=== PATIENT | female | born 1955 | race Caucasian/White ===

== ENCOUNTER 2018-07-08 11:16 | Emergency (ER) | payer BC ==
--- OUTSIDE RECORDS SUMMARY | 2018-07-08 12:28 | XMS REPORT | Continuity of Care Document ---
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 Payers Date Identification Numbers Payment Provider Subscriber Effective: 2011 Policy Number: [id number] [facility] [place] PayID: [id number] [address] [address] [place] [address] Advance Directives Description No Information Available Problems Date Description Provider Status Onset: 07/21/2011 Mixed hyperlipidemia Dariana Guzman PA Active Onset: 06/27/2016 Gastroesophageal reflux disease Digiovanna, Leonela, [employer] Active Onset: 06/27/2016 Mild intermittent asthma DigiovannaEriLeonela, [employer] Active Onset: 06/27/2016 Allergic rhinitis Digiovanna Leonela, [employer] Active Onset: 06/27/2016 Benign neoplasm of pituitary Digiovanna, Leonela, [employer]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 Onset: 12/29/2017 Vitamin D deficiency Digiovanna, Leonela, [employer] Active Onset: 07/21/2011 Alopecia Dariana Guzman PA Resolved Resolved: 12/29/2017 Family History Date Family Member(s) Observation Comments Father Heart Disease Father Hypertension Father Arthritis Father Dementia Mother Cancer, Ovarian Mother Hypercholesterolemia Mother Hypertension Mother Heart Disease Children 2 Social History Type Date Description Comments Sex Unknown Marital Status Lives With Spouse 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 Tobacco Use Start: Unknown Never Smoked Cigarettes Tobacco Use Start: Unknown Patient has never smoked Smoking Status Reviewed: 09/20/16 Patient has never smoked Allergies, Adverse Reactions, Alerts Date Description Reaction Status Severity Comments 04/01/2005 Meclizine Active 02/17/2005 Erythromycin Active 07/02/2018 Flaxseed Extract Active Facial swelling Medications Medication Date Status Form Strength Qnty SIG Indications Ordering Provider Rosuvastatin 07/02/ Active Tablets 10mg 30tabs take 1 E78.2 Digiovann Calcium 2018 tablet a, 2x/week Leonela, after [employer] main meal Vitamin D 06/30/ Active Tablets 2000Unit OTC 1 by E55.9 Digiovann 2017 mouth a, every day Leonela, [employer] Prevacid 12/13/ Active Capsules 15mg 90caps Take 1 K21.9 Digiovann 2016 Capsule a, Daily Leonela, [employer] Clarinex 08/28/ Active Tablets 5mg 90tabs take 1 J30.9 Digiovann 2014 tablet a, daily Leonela, [employer] Ventolin HFA 03/19/ Active Aerosol 108mcg/Act 1units 2 puffs J45.20 Hussein, 2012 q4 hours tez Aguilar DO Ascorbic Acid 00/ Active Tablets 250mg 100tab 1 po qd Z00.00 Unknown 0000 s Dymista 00/ Active Suspension 137-50mcg/ 1units 1 spray J30.9 Unknown 0000 Act each nostril twice a day as needed J45.20 [place] Active Aerosol 80mcg/Act 1 puff J45.20 Unknown inhaled twice daily DR Wesley Rosuvastatin 07/04/2017 - Hx Tablets 5mg 14t take 1 E78.2 Digiovanna Calcium 07/02/2018 abs tablet by , mouth once Leonela, weekly [employer] Amoxicillin/Cla 05/31/2017 - Hx Tablets 875-125mg 20t 1 by mouth J01.00 galilea Savageanate 06/10/2017 abs twice a Lien Aguilar day x 10 DO days Duexis 09/16/2016 - Hx Tablets 800-26.6mg take one M25.511 Nneka Disla 01/13/2017 tab by adley S mouth three times a day as needed pain K21.9 Prednisone 04/01/2016 - Hx Tablets 10mg 42tabs 6 pills M54.31 Savage, 04/11/2016 pox 2days, Jeff, ruth 5 DO pills po x 2days, 4 pox 2 day, 3 po x 2days, 2 po daily x2, 1 po daily x 2 days Prevacid 12/29/2014 - Hx Capsules DR 15mg 90caps take 1 K21.9 Digiovanna 09/16/2016 capsule , daily Leonela, [employer] Crestor 09/16/2014 - Hx Tablets 5mg 30tabs 1 by mouth E78.2 Digiovanna 07/04/2017 weekly , FRANNY Gipson Ondansetron HCL 06/12/2014 - Hx Tablets 4mg 20tabs 1 po tid 787.02 Savage, 06/17/2014 Jeff, DO Azithromycin 06/12/2014 - Hx Tablets 250mg 6tabs 2 by mouth 465.9 Savage , 06/17/2014 day 1, 1 Jeff, by mouth DO day 2-5 Simvastatin 03/27/2014 - Hx Tablets 5mg 15tabs 1 by mouth 272.2 Savage, 09/16/2014 every Jeff, other day DO Lansoprazole 09/17/2013 - Hx Capsules DR 15mg 90caps 1 po qd Savage, 12/29/2014 Jeff, DO Cyclobenzaprine 03/19/2013 - Hx Tablets 5mg 30tabs 1-2 po qhs Savage, HCL 03/10/2016 prn pain Jeff, caution: DO sedation Triamcinolone 03/19/2013 - Hx Aerosol 55mcg/ 1units 1 spray J30.9 Hussein , Acetonide 06/30/2017 Act each Jeff nostril DO bid Ibuprofen 03/05/2013 - Hx Tablets 800mg 90tabs 1 po tid Hussein, 09/13/2016 with food Jeff, DO Clobetasol 05/29/2012 - Hx Foam 0.05% 50gm apply to Hussein, Propionate 01/13/2017 effected Jeff Emulsion area prn DO Desloratadine 05/10/2011 - Hx Tablets 5mg 90tabs 1 tab by Hussein, 08/28/2014 mouth Jeff, daily DO Tobradex - Hx Suspension 0.3-0. 1Bottle 2 drops Unknown 12/10/2014 1% RIGHT eye three times a day for [address] Boss Immunizations CPT Code Status Date Vaccine Lot # [id number] Given 01/01/2015 Tdap (Adacel) Ages 7 And Above Only [id number] Given 01/26/2012 Afluria Or Fluvirin Flu Vac Intramuscular [id number] Given 03/11/2010 Afluria Or Fluvirin Flu Vac Intramuscular [id number] Given 04/21/2009 Afluria Or Fluvirin Flu Vac Intramuscular Vital Signs Date Vital Result Comment 07/02/2018 4:06pm Weight 201.44 lb Heart Rate 76 /min BP Systolic 130 mmHg BP Diastolic 80 mmHg Respiratory Rate 16 /min Height 63.5 inches 5'3.50" 06/30/17 BMI (Body Mass Index) 35.1 kg/m2 01/10/2018 2:48pm Body Temperature 98.7 F tympanic Weight 198.25 lb Heart Rate 78 /min BP Systolic 136 mmHg BP Diastolic 70 mmHg Respiratory Rate 16 /min Height 63.5 inches 5'3.50" 06/30/17 BMI (Body Mass Index) 34.6 kg/m2 12/29/2017 3:53pm Weight 196.00 lb Heart Rate 78 /min BP Systolic 130 mmHg BP Diastolic 76 mmHg Respiratory Rate 18 /min Height 63.5 inches 5'3.50" 06/30/17 BMI (Body Mass Index) 34.2 kg/m2 06/30/2017 3:28pm Weight 193.00 lb Heart Rate 70 /min BP Systolic 142 mmHg BP Diastolic 78 mmHg Respiratory Rate 16 /min Height 63.5 inches 5'3.50" 06/30/17 BMI (Body Mass Index) 33.6 kg/m2 05/31/2017 11:41am Body Temperature 98.6 F Weight 194.00 lb Heart Rate 80 /min BP Systolic 138 mmHg BP Diastolic 78 mmHg Respiratory Rate 18 /min Height 63.75 inches 5'3.75" O2 % BldC Oximetry 98 % BMI (Body Mass Index) 33.6 kg/m2 01/13/2017 8:56am Weight 189.00 lb Heart Rate 76 /min BP Systolic 122 mmHg BP Diastolic 82 mmHg Respiratory Rate 18 /min Height 63.75 inches 5'3.75" BMI (Body Mass Index) 32.7 kg/m2 09/20/2016 3:36pm Weight 184.00 lb Heart Rate 78 /min BP Systolic 132 mmHg BP Diastolic 74 mmHg Respiratory Rate 18 /min Height 63.75 inches 5'3.75" BMI (Body Mass Index) 31.8 kg/m2 08/31/2016 3:03pm Weight 184.00 lb Heart Rate 74 /min BP Systolic 138 mmHg BP Diastolic 80 mmHg Respiratory Rate 18 /min Height 63.75 inches 5'3.75" BMI (Body Mass Index) 31.8 kg/m2 06/27/2016 8:35am Body Temperature 98.0 F Weight 180.00 lb Heart Rate 74 /min BP Systolic 130 mmHg BP Diastolic 80 mmHg Respiratory Rate 18 /min Height 63.75 inches 5'3.75" BMI (Body Mass Index) 31.1 kg/m2 04/01/2016 9:02am Weight 195.00 lb Heart Rate 68 /min BP Systolic 120 mmHg BP Diastolic 78 mmHg Respiratory Rate 18 /min Height 63.75 inches 5'3.75"02/27 BMI (Body Mass Index) 33.7 kg/m2 03/10/2016 8:38am Weight 196.00 lb Heart Rate 70 /min BP Systolic 140 mmHg BP Diastolic 80 mmHg BP Systolic Recheck 144 mmHg BP Diastolic Recheck 80 mmHg Respiratory Rate 18 /min Height 63.75 inches 5'3.75"02/27 BMI (Body Mass Index) 33.9 kg/m2 11/10/2015 10:13am Weight 191.00 lb Heart Rate 68 /min BP Systolic 130 mmHg BP Diastolic 80 mmHg Respiratory Rate 18 /min Height 63.5 inches 5'3.50" BMI (Body Mass Index) 33.3 kg/m2 04/02/2015 8:31am Weight 197.00 lb Heart Rate 72 /min BP Systolic 130 mmHg BP Diastolic 80 mmHg Respiratory Rate 18 /min Height 63.5 inches 5'3.50" BMI (Body Mass Index) 34.3 kg/m2 01/01/2015 10:15am Weight 194.00 lb BP Systolic 130 mmHg BP Diastolic 72 mmHg Respiratory Rate 18 /min Height 63.5 inches 5'3.50" BMI (Body Mass Index) 33.8 kg/m2 12/10/2014 9:20am Body Temperature 98.8 F Weight 196.00 lb Heart Rate 70 /min BP Systolic 148 mmHg BP Diastolic 88 mmHg Respiratory Rate 18 /min Height 63.5 inches 5'3.50" BMI (Body Mass Index) 34.2 kg/m2 09/16/2014 8:32am Weight 197.00 lb Heart Rate 68 /min BP Systolic 126 mmHg BP Diastolic 70 mmHg Respiratory Rate 18 /min Height 63.5 inches 5'3.50" BMI (Body Mass Index) 34.3 kg/m2 08/26/2014 1:59pm Weight 201.00 lb Heart Rate 66 /min BP Systolic 124 mmHg BP Diastolic 84 mmHg Respiratory Rate 18 /min Height 63.5 inches 5'3.50" BMI (Body Mass Index) 35.0 kg/m2 06/19/2014 9:59am Body Temperature 98.5 F Weight 196.00 lb Heart Rate 72 /min BP Systolic 112 mmHg BP Diastolic 70 mmHg Respiratory Rate 18 /min Height 63.5 inches 5'3.50" BMI (Body Mass Index) 34.2 kg/m2 06/12/2014 8:30am Body Temperature 99.1 F Weight 195.00 lb Heart Rate 84 /min BP Systolic Recheck 120 mmHg BP Diastolic Recheck 68 mmHg Respiratory Rate 18 /min Height 63.5 inches 5'3.50" O2 % BldC Oximetry 98 % BMI (Body Mass Index) 34.0 kg/m2 03/27/2014 10:43am Weight 196.00 lb Heart Rate 72 /min BP Systolic 130 mmHg BP Diastolic 80 mmHg Respiratory Rate 18 /min Height 63.5 inches 5'3.50" 11/23/2013 10:01am Body Temperature 99.1 F Weight 199.00 lb Heart Rate 74 /min BP Systolic 140 mmHg BP Diastolic 90 mmHg Respiratory Rate 18 /min Height 63.5 inches 5'3.50" 09/17/2013 1:10pm BP Systolic 134 mmHg BP Diastolic 74 mmHg 09/17/2013 1:10pm Weight 193.00 lb Heart Rate 70 /min BP Systolic 140 mmHg BP Diastolic 70 mmHg Respiratory Rate 18 /min Height 63.5 inches 5'3.50" 05/28/2013 11:43am BP Systolic 152 mmHg BP Diastolic 80 mmHg 05/28/2013 11:43am Weight 199.00 lb Heart Rate 72 /min BP Systolic 138 mmHg BP Diastolic 80 mmHg Respiratory Rate 18 /min 03/19/2013 9:55am Body Temperature 99.7 F Weight 198.00 lb Heart Rate 74 /min BP Systolic 150 mmHg BP Diastolic 84 mmHg Respiratory Rate 18 /min O2 % BldC Oximetry 98 % 03/05/2013 1:47pm Heart Rate 72 /min BP Systolic 150 mmHg BP Diastolic 80 mmHg Respiratory Rate 18 /min 01/22/2013 10:35am Weight 198.00 lb Heart Rate 76 /min BP Systolic 142 mmHg BP Diastolic 80 mmHg Respiratory Rate 18 /min 08/28/2012 11:16am Weight 197.00 lb Up 18# Heart Rate 68 /min BP Systolic 140 mmHg BP Diastolic 84 mmHg Respiratory Rate 18 /min 07/21/2011 9:59am Weight 179.00 lb Heart Rate 68 /min BP Systolic 140 mmHg BP Diastolic 70 mmHg Respiratory Rate 18 /min Height 64 inches 5'4" 04/08/2011 11:04am Weight 180.00 lb Heart Rate 74 /min BP Systolic 146 mmHg BP Diastolic 78 mmHg Respiratory Rate 20 /min Height 64 inches 5'4" 03/17/2011 9:37am Weight 180.00 lb Heart Rate 89 /min BP Systolic 158 mmHg BP Diastolic 80 mmHg Respiratory Rate 17 /min Height 64 inches 5'4" 03/11/2011 1:50pm Body Temperature 98.7 F Weight 184.06 lb Heart Rate 68 /min BP Systolic 130 mmHg BP Diastolic 88 mmHg Respiratory Rate 18 /min Height 64 inches 5'4" O2 % BldC Oximetry 98 % 11/30/2010 8:40am BP Systolic 144 mmHg BP Diastolic 78 mmHg 11/30/2010 8:40am Weight 177.00 lb Heart Rate 64 /min BP Systolic 150 mmHg BP Diastolic 90 mmHg Respiratory Rate 16 /min Height 64 inches 5'4" 10/18/2010 9:46am Weight 182.00 lb Heart Rate 85 /min BP Systolic 134 mmHg BP Diastolic 80 mmHg Respiratory Rate 18 /min 08/20/2010 11:46am Weight 187.00 lb Heart Rate 64 /min BP Systolic 170 mmHg BP Diastolic 100 mmHg 07/22/2010 8:34am Weight 190.00 lb down 14 lbs Heart Rate 80 /min BP Systolic 120 mmHg BP Diastolic 80 mmHg Height 64 inches 5'4" 05/14/2010 10:24am Body Temperature 100.0 F Weight 204.00 lb Heart Rate 90 /min BP Systolic 124 mmHg l arm BP Diastolic 88 mmHg l arm Respiratory Rate 18 /min O2 % BldC Oximetry 99 % Ra 03/11/2010 8:22am Weight 204.00 lb Heart Rate 66 /min BP Systolic 142 mmHg BP Diastolic 76 mmHg Respiratory Rate 16 /min 12/09/2009 3:18pm Weight 203.00 lb Heart Rate 80 /min BP Systolic 114 mmHg l arm BP Diastolic 72 mmHg l arm Respiratory Rate 16 /min 11/19/2009 9:47am Weight 203.00 lb Heart Rate 66 /min BP Systolic 120 mmHg BP Diastolic 74 mmHg Respiratory Rate 15 /min 10/29/2009 10:02am BP Systolic 136 mmHg BP Diastolic 90 mmHg 10/29/2009 10:02am Weight 200.00 lb Heart Rate 60 /min BP Systolic 144 mmHg l arm BP Diastolic 100 mmHg l arm Respiratory Rate 18 /min 08/25/2009 9:37am Body Temperature 100.5 F Weight 204.00 lb Heart Rate 75 /min BP Systolic 108 mmHg BP Diastolic 80 mmHg O2 % BldC Oximetry 98 % Ra 06/04/2009 8:30am Weight 210.00 lb BP Systolic 140 mmHg BP Diastolic 80 mmHg 01/01/2009 3:07pm Weight 207.00 lb Heart Rate 72 /min BP Systolic 124 mmHg RIGHT BP Diastolic 76 mmHg RIGHT Respiratory Rate 15 /min 06/30/2008 1:30pm BP Systolic 132 mmHg BP Diastolic 80 mmHg 06/30/2008 1:30pm Weight 203.00 lb Heart Rate 80 /min BP Systolic 148 mmHg BP Diastolic 80 mmHg Respiratory Rate 15 /min 05/27/2008 9:40am BP Systolic 148 mmHg BP Diastolic 88 mmHg 05/27/2008 9:40am Weight 204.00 lb Heart Rate 80 /min BP Systolic 140 mmHg BP Diastolic 80 mmHg Respiratory Rate 15 /min 01/24/2008 11:29am Body Temperature 99.7 F Weight 200.00 lb Heart Rate 84 /min BP Systolic 152 mmHg BP Diastolic 94 mmHg Respiratory Rate 20 /min 12/13/2007 10:01am Weight 202.00 lb Heart Rate 69 /min BP Systolic 106 mmHg BP Diastolic 74 mmHg Respiratory Rate 16 /min 08/21/2007 10:11am Heart Rate 68 /min BP Systolic 132 mmHg BP Diastolic 86 mmHg Respiratory Rate 18 /min 06/07/2007 9:35am Weight 209.00 lb Heart Rate 72 /min BP Systolic 122 mmHg BP Diastolic 80 mmHg Respiratory Rate 18 /min 01/23/2007 9:56am Weight 202.00 lb Heart Rate 69 /min BP Systolic 118 mmHg BP Diastolic 68 mmHg Respiratory Rate 18 /min 10/05/2006 8:31am Weight 209.00 lb Heart Rate 62 /min BP Systolic 120 mmHg BP Diastolic 80 mmHg Respiratory Rate 17 /min 08/22/2006 10:39am Body Temperature 98.8 F Weight 205.00 lb Heart Rate 75 /min BP Systolic 136 mmHg BP Diastolic 80 mmHg Respiratory Rate 17 /min O2 % BldC Oximetry 98 % 07/08/2006 11:01am Body Temperature 100.3 F Weight 208.00 lb Heart Rate 76 /min BP Systolic 130 mmHg BP Diastolic 70 mmHg Respiratory Rate 20 /min 06/30/2006 10:00am Body Temperature 98.8 F Weight 210.00 lb With Boots And Coat Heart Rate 74 /min BP Systolic 138 mmHg BP Diastolic 80 mmHg Respiratory Rate 17 /min 2006 8:44am Heart Rate 62 /min BP Systolic 120 mmHg BP Diastolic 60 mmHg Respiratory Rate 18 /min 10/17/2005 2:44pm Body Temperature 99.4 F Weight 207.00 lb Heart Rate 77 /min BP Systolic 150 mmHg BP Diastolic 100 mmHg Respiratory Rate 17 /min 04/01/2005 11:21am Body Temperature 98.2 F Weight 209.00 lb Heart Rate 89 /min BP Systolic 130 mmHg BP Diastolic 98 mmHg Respiratory Rate 17 /min 02/17/2005 2:06pm Weight 209.00 lb Heart Rate 68 /min BP Systolic 144 mmHg BP Diastolic 80 mmHg Respiratory Rate 16 /min Results Test Date Facility Test Result H/L Range Note Laboratory test 06/28/2018 [facility] Prolactin 9.6 ng/ mL 1, 2 finding (315)- - LDL Cholesterol 06/28/2018 [facility] Cholesterol 242 mg/ dL High <200 3 Profile (315)- - Triglycerides 126 mg/dL <150 4 HDL Cholesterol 57 mg/dL >40 5 LDL-Cholesterol 160 mg/dL < 100 6 BMP (Basic) 06/28/2018 [facility] Glucose 93 mg/dL N 74 -106 (315)- - BUN 16 mg/dL N 7-18 Creatinine 0.8 mg/dL N 0.6-1.3 Glom Filtration Rate, Estimate >60 mL/min >60 If >60 mL/min >60 7 BUN/Creat 20.0 ratio Sodium 141 mmol/L N 136-145 Potassium 4.0 mmol/L N 3.5-5.1 Chloride 106 mmol/L N 98-107 Carbon Dioxide 30 mmol/L N 21-32 Anion Gap 5 mEq/L Low 8-16 Calcium 8.6 mg/dL N 8.5-10.1 Liver Function 06/28/2018 [facility] Total Protein 7.3 g/ dL N 6.4-8.2 Tests (315)- - Albumin 3.6 g/dL N 3.4-5.0 Globulin 3.7 g/dL N 1.9-4.3 Alb/Glob 1.0 ratio Bilirubin,Total 0.5 mg/dL N 0.2-1.0 Bilirubin,Direct < 0.1 mg/dL N 0.0-0.2 Bilirubin,Indirect 0.4 mg/dL N 0.0-0.9 Sgot/Ast 8 U/L Low 15-37 8 SGPT/Alt 21 U/L N 12-78 Alkaline Phosphatase 52 U/L N 45-117 Laboratory test 06/28/2018 [facility] Vitamin 25.9 Low 30.0-100.0 9 finding (315)- - D,25-Hydroxy ng/mL LDL Cholesterol 04/11/2018 [facility] Cholesterol 268 High <200 10, Profile (315)- - mg/dL 11 Triglycerides 117 mg/dL <150 12 HDL Cholesterol 56 mg/dL >40 13 LDL-Cholesterol 189 mg/dL < 100 14 CBC With Auto 04/11/2018 [facility] White Blood 4.2 K/uL N 3.1-10.7 Diff (315)- - Count Red Blood Count 4.66 M/uL N 3.90-5.40 Hemoglobin 13.6 gm/dL N 11.6-15.8 Hematocrit 41.8 % N 36.0-46.1 Mean Cell Volume 89.7 fl N 80.9-99.0 Mean Corpuscular HGB 29.2 pg N 25.9-32.7 Mean Corpuscular HGB Conc 32.5 g/dL N 30.8-34.3 Platelet Count 190 K/uL N 155-360 Red Cell Distri Width SD 42.4 fl N 3-47 Red Cell Distri Width %CV 13.1 % N 11.7-14.4 Mean Platelet Volume 10.4 fL N 8.9-12.4 Neut% 66.1 % N 40.4-72.8 Lymph % 24.1 % N 20.0-42.0 [place] % 7.9 % N 4.3-13.2 Eo% 1.2 % N 0.0-6.6 Bas% 0.7 % N 0.0-1.1 Neut# 2.77 K/uL N 1.8-7.0 Lymph # 1.01 K/uL N 1.0-4.0 [place] # 0.33 K/uL N 0.3-0.9 Eos # 0.05 K/uL N 0.0-0.5 Baso # 0.03 K/uL N 0.0-0.1 Liver Function 04/11/2018 [facility] Total Protein 7.1 g/ dL N 6.4-8.2 Tests (315)- - Albumin 3.6 g/dL N 3.4-5.0 Globulin 3.5 g/dL N 1.9-4.3 Alb/Glob 1.0 ratio Bilirubin,Total 0.6 mg/dL N 0.2-1.0 Bilirubin,Direct 0.1 mg/dL N 0.0-0.2 Bilirubin,Indirect 0.5 mg/dL N 0.0-0.9 Sgot/Ast 12 U/L Low 15-37 15 SGPT/Alt 22 U/L N 12-78 Alkaline Phosphatase 51 U/L N 45-117 Laboratory test 12/27/2017 [facility] Vitamin 26.7 Low 30.0-100.0 16, 17 finding (315)- - D,25-Hydroxy ng/mL Comprehensive 12/27/2017 [facility] Glucose 95 mg/dL N 74-106 Metabolic-RL (315)- - BUN 14 mg/dL N 7-18 Creatinine 0.9 mg/dL N 0.6-1.3 Glom Filtration Rate, Estimate >60 mL/min >60 If >60 mL/min >60 18 BUN/Creat 15.5 ratio Sodium 142 mmol/L N 136-145 Potassium 4.0 mmol/L N 3.5-5.1 Chloride 106 mmol/L N 98-107 Carbon Dioxide 28 mmol/L N 21-32 Anion Gap 8 mEq/L N 8-16 Calcium 8.6 mg/dL N 8.5-10.1 Total Protein 7.4 g/dL N 6.4-8.2 Albumin 3.8 g/dL N 3.4-5.0 Globulin 3.6 g/dL N 1.9-4.3 Alb/Glob 1.1 ratio Bilirubin,Total 0.8 mg/dL N 0.2-1.0 Sgot/Ast 14 U/L Low 15-37 19 SGPT/Alt 22 U/L N 12-78 Alkaline Phosphatase 53 U/L N 45-117 Lipid 12/27/2017 [facility] Cholesterol 248 mg/dL High <200 20 (315)- - Triglycerides 134 mg/dL <150 21 HDL Cholesterol 55 mg/dL >40 22 LDL-Cholesterol 166 mg/dL < 100 23 LDL Cholesterol 06/26/2017 [facility] Cholesterol 243 mg/dL High <200 24, 25 Profile Lab Dept [phone] Triglycerides 127 mg/dL <150 26 HDL Cholesterol 56 mg/dL >40 27 LDL-Cholesterol 162 mg/dL < 100 28 Comprehensive Metabolic 06/26/2017 [facility] Glucose 94 mg/dL N 74-106 Panel Lab Dept [phone] BUN 20 mg/dL High 7-18 Creatinine 0.8 mg/dL N 0.6-1.3 Glom Filtration Rate, Estimate >60 mL/min >60 If >60 mL/min >60 29 BUN/Creat 25.0 ratio Sodium 143 mmol/L N 136-145 Potassium 4.1 mmol/L N 3.5-5.1 Chloride 108 mmol/L High 98-107 Carbon Dioxide 31 mmol/L N 21-32 Anion Gap 4 mEq/L Low 8-16 Calcium 8.9 mg/dL N 8.5-10.1 Total Protein 7.0 g/dL N 6.4-8.2 Albumin 3.5 g/dL N 3.4-5.0 Globulin 3.5 g/dL N 1.9-4.3 Alb/Glob 1.0 ratio Bilirubin,Total 0.4 mg/dL N 0.2-1.0 Sgot/Ast 12 U/L Low 15-37 30 SGPT/Alt 20 U/L N 12-78 Alkaline Phosphatase 56 U/L N 45-117 CBS W/Automated 06/26/2017 [facility] White Blood 6.1 K/uL N 3.1-10.7 Diff Lab Dept Count [phone] Red Blood Count 4.63 M/uL N 3.90-5.40 Hemoglobin 13.8 gm/dL N 11.6-15.8 Hematocrit 41.5 % N 36.0-46.1 Mean Cell Volume 89.6 fl N 80.9-99.0 Mean Corpuscular HGB 29.8 pg N 25.9-32.7 Mean Corpuscular HGB Conc 33.3 g/dL N 30.8-34.3 Platelet Count 186 K/uL N 155-360 Red Cell Distri Width SD 43.0 fl N 3-47 Red Cell Distri Width %CV 13.4 % N 11.7-14.4 Mean Platelet Volume 10.0 fL N 8.9-12.4 Neut% 71.1 % N 40.4-72.8 Lymph % 20.0 % N 20.0-42.0 [place] % 6.4 % N 4.3-13.2 Eo% 2.0 % N 0.0-6.6 Bas% 0.5 % N 0.0-1.1 Neut# 4.31 K/uL N 1.8-7.0 Lymph # 1.21 K/uL N 1.0-4.0 [place] # 0.39 K/uL N 0.3-0.9 Eos # 0.12 K/uL N 0.0-0.5 Baso # 0.03 K/uL N 0.0-0.1 Laboratory test 06/26/2017 [facility] Thyroid Stim 2.69 uIU/mL N 0.30-4.20 finding Lab Dept Hormone [phone] Prolactin 11.5 ng/mL 31 Vitamin D,25-Hydroxy 18.1 ng/mL Low 30.0-100.0 32 Laboratory test 03/24/2017 [facility] Hepatitis C 0.1 s/corat 0.0-0.9 33, 34 finding Lab Dept Antibody [phone] Laboratory test 11/04/2016 [facility] Occult NEGATIVE Negative 35, 36 finding (315)- - Blood,Stool Urinalysis With 11/04/2016 [facility] Urine Color YELLOW Yellow Microscopic (315)- - Urine Clarity CLEAR Clear Urine Glucose - Dipstick NEGATIVE mg/dL Negative Urine Bilirubin - Dipstick NEGATIVE Negative Urine Ketone NEGATIVE mg/dL Negative Urine Specific [place] 1.010 N 1.010-1.030 Urine Blood LARGE Abnormal Negative Urine PH 6.0 Low 6.5-7.5 Urine Protein - Dipstick NEGATIVE mg/dL Negative Urine Urobilinogen - Dipstick 0.2 E.U./dL N 0.2-1.0 Urine Nitrite - Dipstick NEGATIVE Negative Urine Leuk Esterase NEGATIVE Negative Urine RBC 5-10 rbc/hpf High 0-2 Urine WBC 0-2 wbc/hpf 0-7 Urine Epithelial Cells MODERATE /lpf None Seen 37 Urine Bacteria VERY FEW None Seen Source: URINE, CLEAN CAT <SEE NOTE> 38 Ova & Parasite 11/04/2016 [facility] Cryptosporidium NEGATIVE FOR 39 Antigen Screen (315)- - Specific Ag CRY <SEE NOTE> Giardia Specific Antigen NEGATIVE FOR LON <SEE NOTE> 40 C. Difficile 11/04/2016 [facility] C. Difficile NEGATIVE FOR C. 41 Toxin A/B (315)- - Toxin A/B <SEE NOTE> Stool Culture 11/04/2016 [facility] Stool Culture NO ENTERIC 42 (315)- - PATHO <SEE NOTE> . ................ <SEE NOTE> N 43 Note: INCLUDES TESTING <SEE NOTE> N 44 . PLESIOMONAS, CAM <SEE NOTE> N 45 . ................ <SEE NOTE> N 46 . YERSINIA AND VIB <SEE NOTE> N 47 . SHOULD BE REQUES <SEE NOTE> N 48 Shiga Toxin 1 Antigen SHIGA TOXIN 1 NO <SEE NOTE> 49 Shiga Toxin 2 Antigen SHIGA TOXIN 2 NO <SEE NOTE> 50 Laboratory test 11/04/2016 [facility] Lipase 198 U/L N 73-393 finding (315)- - CBS W/Automated 11/04/2016 [facility] White Blood 3.0 K/ uL Low 3.1-10.7 Diff (315)- - Count Red Blood Count 4.65 M/uL N 3.90-5.40 Hemoglobin 13.8 gm/dL N 11.6-15.8 Hematocrit 40.3 % N 36.0-46.1 Mean Cell Volume 86.7 fl N 80.9-99.0 Mean Corpuscular HGB 29.7 pg N 25.9-32.7 Mean Corpuscular HGB Conc 34.2 g/dL N 30.8-34.3 Platelet Count 176 K/uL N 150-400 Red Cell Distri Width SD 41.3 fl N 3-47 Red Cell Distri Width %CV 13.4 % N 11.7-14.4 Mean Platelet Volume 10.4 fL N 8.9-12.4 Neut% 57.1 % N 40.4-72.8 Lymph % 25.4 % N 20.0-42.0 [place] % 16.9 % High 4.3-13.2 Eo% 0.3 % N 0.0-6.6 Bas% 0.3 % N 0.0-1.1 Neut# 1.68 K/uL Low 1.8-7.0 Lymph # 0.75 K/uL Low 1.0-4.0 [place] # 0.50 K/uL N 0.3-0.9 Eos # 0.01 K/uL N 0.0-0.5 Baso # 0.01 K/uL N 0.0-0.1 Protime 09/20/2016 [facility] Prothrombin Time 10.4 sec 10.2-12.0 Inr 1.0 % Low 2.0-3.0 Basic (BMP) 09/20/2016 [facility] Sodium 145 mmol/L 135-146 51 Potassium 4.4 mmol/L 3.5-5.2 Chloride# 106 mmol/L 97-110 52 Carbon Dioxide 31 mmol/L 24-34 Glucose 79 mg/dL 70-105 BUN 23 mg/dL 6-26 Creatinine 1.0 mg/dL 0.5-1.4 Calcium 9.0 mg/dL 8.5-10.2 Non Gisele Egfr 56 Low >60 53 Gisele Egfr >60 >60 54 Anion Gap 12 mmol/L 7-16 55 CBC With Auto Diff 09/20/2016 [facility] WBC 7.0 K/uL 4.1-11.0 RBC 4.67 M/uL 4.00-5.40 Hemoglobin 13.6 gm/dL 12.0-16.0 Hematocrit 40.7 % 36.0-47.0 MCV 87.2 fL 80.0-97.0 MCH 29.2 pg 27.0-32.0 MCHC 33.5 g/dL 32.0-36.0 RDW 13.3 % 11.5-14.5 PLT Count 195 K/ul 140-400 Neutrophil 68.9 % 35.0-75.0 Lymphocyte 21.9 % 16.0-52.0 Monocyte 7.2 % 2.0-10.0 Eosinophil 1.1 % 0.0-5.0 Basophil 0.9 % 0.0-4.0 Abs Neutrophils 4.8 K/uL 2.1-8.0 Abs Lymphocytes 1.5 K/uL 0.8-5.5 Abs Monocytes 0.5 K/uL 0.1-1.0 Abs Eosinophils 0.1 K/uL 0.0-0.5 Abs Basophils 0.1 K/uL 0.0-0.3 Laboratory test 09/20/2016 [facility] 24.8 s (22.0-32.6) 56 finding BMP (Basic) 06/10/2016 [facility] Glucose 86 mg/dL N 74 -106 (315)- - BUN 17 mg/dL N 7-18 Creatinine 0.8 mg/dL N 0.6-1.3 Glom Filtration Rate, Estimate >60 mL/min N >60 If >60 mL/min N >60 57 BUN/Creat 21.2 ratio N Sodium 144 mmol/L N 136-145 Potassium 3.8 mmol/L N 3.5-5.1 Chloride 107 mmol/L N 98-107 Carbon Dioxide 30 mmol/L N 21-32 Anion Gap 7 mEq/L Low 8-16 Calcium 8.6 mg/dL N 8.5-10.1 Liver Function 06/10/2016 [facility] Total Protein 6.9 g/ dL N 6.4-8.2 Tests (315)- - Albumin 3.6 g/dL N 3.4-5.0 Globulin 3.3 g/dL N 1.9-4.3 Alb/Glob 1.1 ratio N Bilirubin,Total 0.6 mg/dL N 0.2-1.0 Bilirubin,Direct 0.2 mg/dL N 0.0-0.2 Bilirubin,Indirect 0.4 mg/dL N 0.0-0.9 Sgot/Ast 11 U/L Low 15-37 58 SGPT/Alt 21 U/L N 12-78 Alkaline Phosphatase 48 U/L N 45-117 LDL Cholesterol 06/10/2016 [facility] Cholesterol 193 mg/ dL N <200 59 Profile (315)- - Triglycerides 105 mg/dL N <150 60 HDL Cholesterol 53 mg/dL N >40 61 LDL-Cholesterol 119 mg/dL N < 100 62 Liver Function 03/11/2016 [facility] Total Protein 6.6 g/ dL N 6.4-8.2 Tests (315)- - Albumin 3.4 g/dL N 3.4-5.0 Globulin 3.2 g/dL N 1.9-4.3 Alb/Glob 1.1 ratio N Bilirubin,Total 0.3 mg/dL N 0.2-1.0 Bilirubin,Direct < 0.1 mg/dL N 0.0-0.2 Bilirubin,Indirect 0.2 mg/dL N 0.0-0.9 Sgot/Ast 8 U/L Low 15-37 63 SGPT/Alt 17 U/L N 12-78 Alkaline Phosphatase 51 U/L N 45-117 LDL Cholesterol 03/11/2016 [facility] Cholesterol 245 mg/ dL High <200 64 Profile (315)- - Triglycerides 109 mg/dL N <150 65 HDL Cholesterol 49 mg/dL N >40 66 LDL-Cholesterol 174 mg/dL N < 100 67 BMP (Basic) 11/03/2015 [facility] Glucose 101 mg/dL 74 -106 (315)- - BUN 14 mg/dL 7-18 Creatinine 0.9 mg/dL 0.6-1.3 Glom Filtration Rate, Estimate >60 mL/min >60 If >60 mL/min >60 68 BUN/Creat 15.5 ratio Sodium 143 mmol/L 136-145 Potassium 4.0 mmol/L 3.5-5.1 Chloride 106 mmol/L 98-107 Carbon Dioxide 31 mmol/L 21-32 Anion Gap 6 mEq/L Low 8-16 Calcium 9.2 mg/dL 8.5-10.1 Liver Function 11/03/2015 [facility] Total Protein 7.1 g/ dL 6.4-8.2 Tests (315)- - Albumin 3.7 g/dL 3.4-5.0 Globulin 3.4 g/dL 1.9-4.3 Alb/Glob 1.1 ratio Bilirubin,Total 0.6 mg/dL 0.2-1.0 Bilirubin,Direct 0.1 mg/dL 0.0-0.2 Bilirubin,Indirect 0.5 mg/dL 0.0-0.9 Sgot/Ast 11 U/L Low 15-37 69 SGPT/Alt 24 U/L 12-78 Alkaline Phosphatase 52 U/L 45-117 LDL Cholesterol 11/03/2015 [facility] Cholesterol 276 mg/ dL High <200 70 Profile (315)- - Triglycerides 169 mg/dL High <150 71 HDL Cholesterol 50 mg/dL >40 72 LDL-Cholesterol 192 mg/dL < 100 73 Comprehensive Metabolic 07/14/2015 [facility] Glucose 97 mg/dL 74-106 Panel (315)- - BUN 16 mg/dL 7-18 Creatinine 0.8 mg/dL 0.6-1.3 Glom Filtration Rate, Estimate >60 mL/min >60 If >60 mL/min >60 74 BUN/Creat 20.0 ratio Sodium 143 mmol/L 136-145 Potassium 3.9 mmol/L 3.5-5.1 Chloride 107 mmol/L 98-107 Carbon Dioxide 28 mmol/L 21-32 Anion Gap 8 mEq/L 8-16 Calcium 8.2 mg/dL Low 8.5-10.1 Total Protein 6.9 g/dL 6.4-8.2 Albumin 3.6 g/dL 3.4-5.0 Globulin 3.3 g/dL 1.9-4.3 Alb/Glob 1.1 ratio Bilirubin,Total 0.4 mg/dL 0.2-1.0 Sgot/Ast 14 U/L Low 15-37 75 SGPT/Alt 22 U/L 12-78 Alkaline Phosphatase 54 U/L 45-117 Laboratory test finding 07/14/2015 [facility] CK 84 U/L 26-192 (315)- - Troponin-I < 0.015 ng/mL 76 CBC W/Automated Diff 07/14/2015 [facility] White Blood 4.7 K/uL 3.1-10.7 (315)- - Count Red Blood Count 4.58 M/uL 3.90-5.40 Hemoglobin 13.6 gm/dL 11.6-15.8 Hematocrit 40.3 % 36.0-46.1 Mean Cell Volume 88.0 fl 80.9-99.0 Mean Corpuscular HGB 29.7 pg 25.9-32.7 Mean Corpuscular HGB Conc 33.7 g/dL 30.8-34.3 Platelet Count 195 K/uL 155-360 Red Cell Distri Width SD 41.1 fl 3-47 Red Cell Distri Width %CV 13.2 % 11.7-14.4 Mean Platelet Volume 10.4 fL 8.9-12.4 Neut% 61.3 % 40.4-72.8 Lymph % 27.5 % 17.0-46.1 [place] % 8.4 % 4.3-13.2 Eo% 2.4 % 0.0-6.6 Bas% 0.4 % 0.0-1.1 Neut# 2.85 K/uL 1.8-7.0 Lymph # 1.28 K/uL Low 1.8-7.0 [place] # 0.39 K/uL 0.3-0.9 Eos # 0.11 K/uL 0.0-0.5 Baso # 0.02 K/uL 0.0-0.1 Protime 07/14/2015 [facility] Protime See Note 77 (315)- - Protime 12.4 seconds 12.1-14.9 Inr 0.9 0.9-1.1 78 Laboratory test 07/14/2015 [facility] D-Dimer, 0.41 ug/ mL 79 finding (315)- - Quantitative Liver Function 03/25/2015 [facility] Total Protein 6.8 g/ dL 6.4-8. Tests (315)- - 2 Albumin 3.6 g/dL 3.4-5.0 Globulin 3.2 g/dL 1.9-4.3 Alb/Glob 1.1 ratio Bilirubin,Total 0.8 mg/dL 0.2-1.0 Bilirubin,Direct 0.1 mg/dL 0.0-0.2 Bilirubin,Indirect 0.7 mg/dL 0.0-0.9 Sgot/Ast 11 U/L Low 15-37 80 SGPT/Alt 22 U/L 12-78 Alkaline Phosphatase 50 U/L 45-117 LDL Cholesterol 03/25/2015 [facility] Cholesterol 187 mg/ dL <200 81 Profile (315)- - Triglycerides 113 mg/dL <150 82 HDL Cholesterol 49 mg/dL >40 83 LDL-Cholesterol 115 mg/dL < 100 84 Lipid Treatment 12/29/2014 [facility] Cholesterol 257 mg/dL High 50-199 Triglycerides 166 mg/dL 30-200 HDL 45 mg/dL 35-85 85 Chol/ HDL Ratio 5.7 ratio High 3.7-5.6 VLDL 33 mg/dL High 2-29 LDL (Calc) 179 mg/dL High 20-99 86 Alt 17 U/L 3-42 Ast 11 U/L 8-42 Basic (BMP) 12/29/2014 [facility] Sodium 139 mmol/L 134-142 Potassium 4.5 mmol/L 3.5-5.2 Chloride 103 mmol/L 97-109 Carbon Dioxide 29 mmol/L 24-34 Glucose 91 mg/dL 70-105 BUN 23 mg/dL 6-26 Creatinine 0.8 mg/dL 0.5-1.4 Calcium 9.1 mg/dL 8.5-10.2 Anion Gap 12 mmol/L 6-14 Non Gisele Egfr >60 >60 87 Gisele Egfr >60 >60 88 Lipid Treatment 09/09/2014 [facility] Cholesterol 264 Results veri <SEE High 50-199 89 NOTE> mg/dL Triglycerides 149 mg/dL 30-200 HDL 49 mg/dL 35-85 90 Chol/ HDL Ratio 5.4 ratio 3.7-5.6 VLDL 30 mg/dL High 2-29 LDL (Calc) 185 mg/dL High 20-99 91 Alt 14 U/L 3-42 Ast 13 U/L 8- Lipid Treatment 06/12/2014 [facility] Cholesterol 184 mg/dL 50-199 Triglycerides 150 mg/dL 30-200 HDL 36 mg/dL 35-85 92 Chol/ HDL Ratio 5.1 ratio 3.7-5.6 VLDL 30 mg/dL High 2-29 LDL (Calc) 118 mg/dL High 20-99 93 Alt 32 U/L 3-42 Ast 20 U/L 8- Laboratory test finding 03/20/2014 N2N/CCD Import BUN 13.0 mg/dL 7.0- 18.0 BUN/Creat Ratio 16.3 ratio 12.0-20.0 Calcium 9.8 mg/dL 8.7-10.5 Chloride 106.0 mmol/L 98.0-107.0 Co2 28.0 mmol/L 22.0-30.0 Creatinine-Serum 0.8 mg/dL 0.7-1.2 Glucose 89.0 mg/dL 75.0-110.0 Potasium 4.2 mmol/L 3.6-5.0 Sodium 143.0 mmil/L 137.0-145.0 eGFR 78.3 Lipid Panel 03/20/2014 N2N/[facility] Import Chol/HDL Ratio 5.4 ratio Cholesterol 260.0 mg/dL High 50.0-199.0 HDL 48.0 mg/dL 29.0-86.0 LDL, Calculated 184.8 mg/dL High 20.0-129.0 Triglycerides 136.0 mg/dL 30.0-249.0 vLDL 27.2 ng/dL Laboratory test finding 12/11/2013 [employer] Import Beef <0.10 Class 0 kU/L 94 Chicken <0.10 Class 0 kU/L 95 Chocolate/[place] F052 <0.10 Class 0 kU/L 96 Coffee <0.10 Class 0 kU/L 97 [place] 1.29 ClassIIkU/L High 98 Egg White <0.10 Class 0 kU/L 99 F033 [place] <0.10 Class 0 kU/L 100 Linseed F333 0.19 Class0/IkU/L High 101 Milk (Cow) <0.10 Class 0 kU/L 102 Peanut <0.10 Class 0 kU/L 103 Rice <0.10 Class 0 kU/L 104 Soybean <0.10 Class 0 kU/L 105 Tomato <0.10 Class 0 kU/L 106 Wheat <0.10 Class 0 kU/L 107 Laboratory test finding 09/12/2013 N2N/[employer] Import Alt 14.0 U/L 9.0-52.0 Ast 11.0 U/L Low 14.0-36.0 Lipid Panel 09/12/2013 N2N/[employer] Import Chol/HDL Ratio 5.4 ratio Cholesterol 270.0 mg/dL High 50.0-199.0 HDL 50.0 mg/dL 29.0-86.0 LDL, Calculated 180.8 mg/dL High 20.0-129.0 Triglycerides 196.0 mg/dL 30.0-249.0 vLDL 39.2 ng/dL Urine Microalbumin/Creat 09/12/2013 N2N/[facility] Import Urine Creatinine 46.3 mg /dL Urine Microalbumin <5.0 mg/L <18.5 108 Laboratory test finding 05/21/2013 INDOM/CCD Import % Baso. 1.2 % 0.0-2.0 % Eos. 2.9 % 0.0-4.0 % Lymph 24 % 20-44 % [place] 6.8 % 2.0-10.0 % [place] 65 % 50-70 A/G Ratio 1.7 ratio 1.6-2.2 Absolute Baso. 0.1 K/ul 0.0-0.3 Absolute Eos. 0.1 K/ul 0.0-0.5 Absolute Lymph. 1.2 K/ul 0.8-4.[address] [place]. 0.3 K/ul 0.1-1.0 Absolute [place]. 3.31 K/ul 2.05-7.63 Albumin 4.1 g/dL 3.5-5.0 Alk. Phos. 51.0 U/L 30.0-126.0 Alt 14.0 U/L 9.0-52.0 Anion Gap 10.0 mmol/L 10.0-20.0 Ast 13.0 U/L Low 14.0-36.0 BUN 17.0 mg/dL 7.0-18.0 BUN/Creat Ratio 21.3 ratio High 12.0-20.0 Calcium 9.3 mg/dL 8.7-10.5 Chloride 105.0 mmol/L 98.0-107.0 Co2 28.0 mmol/L 22.0-30.0 Creatinine-Serum 0.8 mg/dL 0.7-1.2 Globulin 2.4 g/dL Low 2.7-4.3 Glucose 95.0 mg/dL 75.0-110.0 HCT 42.4 % 37.0-51.0 HGB 13.7 Gm/dl 12.0-16.0 MCH 29.4 pg 26.0-32.0 MCHC 32.2 g/dL 31.0-36.0 MCV 91.3 Fl 80.0-97.0 MPV 6.6 fL 6.0-10.0 PLT 190 K/ul 140-440 Potasium 4.2 mmol/L 3.6-5.0 RBC 4.7 M/ul 4.2-6.3 RDW 12.5 % 11.5-14.5 Sodium 143.0 mmil/L 137.0-145.0 Total Bilirubin 0.6 mg/dL 0.2-1.3 Total Protein 6.5 g/dL 6.3-8.2 WBC 5.1 K/ul 4.1-10.9 eGFR 76.7 mi/minper1.73 109 Lipid Panel 05/21/2013 N2N/CCD Import Chol/HDL Ratio 5.5 ratio Cholesterol 281.0 mg/dL High 50.0-199.0 HDL 51.0 mg/dL 29.0-86.0 LDL, Calculated 207.0 mg/dL High 20.0-129.0 Triglycerides 115.0 mg/dL 30.0-249.0 vLDL 23.0 ng/dL Laboratory test finding 01/22/2013 N2N/CCD Import % Baso. 0.9 % 0.0-2.0 % Eos. 1.3 % 0.0-4.0 % Lymph 25 % 20-44 % [place] 7.5 % 2.0-10.0 % [place] 66 % 50-70 A/G Ratio 1.5 ratio Low 1.6-2.2 Absolute Baso. 0.0 K/ul 0.0-0.3 Absolute Eos. 0.1 K/ul 0.0-0.5 Absolute Lymph. 1.4 K/ul 0.8-4.[address] [place]. 0.4 K/ul 0.1-1.0 Absolute [place]. 3.57 K/ul 2.05-7.63 Albumin 4.4 g/dL 3.5-5.0 Alk. Phos. 45.0 U/L 30.0-126.0 Alt 19.0 U/L 9.0-52.0 Anion Gap 7.0 mmol/L Low 10.0-20.0 Ast 14.0 U/L 14.0-36.0 BUN 14.0 mg/dL 7.0-18.0 BUN/Creat Ratio 17.5 ratio 12.0-20.0 Calcium 9.6 mg/dL 8.7-10.5 Chloride 104.0 mmol/L 98.0-107.0 Co2 30.0 mmol/L 22.0-30.0 Creatinine-Serum 0.8 mg/dL 0.7-1.2 Globulin 2.9 g/dL 2.7-4.3 Glucose 86.0 mg/dL 75.0-110.0 HCT 44.3 % 37.0-51.0 HGB 13.9 Gm/dl 12.0-16.0 MCH 28.4 pg 26.0-32.0 MCHC 31.4 g/dL 31.0-36.0 MCV 90.4 Fl 80.0-97.0 MPV 7.7 fL 6.0-10.0 PLT 242 K/ul 140-440 Potasium 4.4 mmol/L 3.6-5.0 RBC 4.9 M/ul 4.2-6.3 RDW 12.3 % 11.5-14.5 Sodium 141.0 mmil/L 137.0-145.0 TSH 1.93 uIU/ml 0.50-6.00 Total Bilirubin 0.7 mg/dL 0.2-1.3 Total Protein 7.3 g/dL 6.3-8.2 WBC 5.5 K/ul 4.1-10.9 eGFR 81.3 mi/minper1.73 110 Lipid Panel 01/22/2013 N2N/CCD Import Chol/HDL Ratio 5.5 ratio Cholesterol 292.0 mg/dL High 50.0-199.0 HDL 53.0 mg/dL 29.0-86.0 LDL, Calculated 192.8 mg/dL High 20.0-129.0 Triglycerides 231.0 mg/dL 30.0-249.0 vLDL 46.2 ng/dL Laboratory test finding 08/07/2012 N2N/CCD Import Prolactin 11.9 ng/mL 3.24-29.12 % Baso. 0.9 % 0.0-2.0 % Eos. 1.6 % 0.0-4.0 % Lymph 23 % 20-44 % [place] 8.1 % 2.0-10.0 % [place] 67 % 50-70 A/G Ratio 1.4 ratio Low 1.6-2.2 Absolute Baso. 0.0 K/ul 0.0-0.3 Absolute Eos. 0.1 K/ul 0.0-0.5 Absolute Lymph. 1.1 K/ul 0.8-4.[address] [place]. 0.4 K/ul 0.1-1.0 Absolute [place]. 3.17 K/ul 2.05-7.63 Albumin 3.8 g/dL 3.5-5.0 Alk. Phos. 51.0 U/L 30.0-126.0 Alt 17.0 U/L 9.0-52.0 Anion Gap 10.0 mmol/L 10.0-20.0 Ast 14.0 U/L 14.0-36.0 BUN 16.0 mg/dL 7.0-18.0 BUN/Creat Ratio 17.8 ratio 12.0-20.0 Calcium 9.6 mg/dL 8.7-10.5 Chloride 106.0 mmol/L 98.0-107.0 Co2 27.0 mmol/L 22.0-30.0 Creatinine-Serum 0.9 mg/dL 0.7-1.2 Globulin 2.8 g/dL 2.7-4.3 Glucose 99.0 mg/dL 75.0-110.0 HCT 43.4 % 37.0-51.0 HGB 13.6 Gm/dl 12.0-16.0 MCH 28.0 pg 26.0-32.0 MCHC 31.3 g/dL 31.0-36.0 MCV 89.7 Fl 80.0-97.0 MPV 7.6 fL 6.0-10.0 PLT 229 K/ul 140-440 Potasium 4.2 mmol/L 3.6-5.0 RBC 4.8 M/ul 4.2-6.3 RDW 12.0 % 11.5-14.5 Sodium 143.0 mmil/L 137.0-145.0 Total Bilirubin 0.6 mg/dL 0.2-1.3 Total Protein 6.6 g/dL 6.3-8.2 WBC 4.8 K/ul 4.1-10.9 eGFR 67.4 mi/minper1.7 111 Lipid Panel 08/07/2012 N2N/CCD Import Chol/HDL Ratio 4.8 ratio Cholesterol 245.0 mg/dL High 50.0-199.0 HDL 51.0 mg/dL 29.0-86.0 LDL, Calculated 166.6 mg/dL High 20.0-129.0 Triglycerides 137.0 mg/dL 30.0-249.0 vLDL 27.4 ng/dL Laboratory test finding 08/07/2012 N2N/CCD Import % Baso. 0.9 % 0.0-2.0 % Eos. 1.6 % 0.0-4.0 % Lymph 23 % 20-44 % [place] 8.1 % 2.0-10.0 % [place] 67 % 50-70 A/G Ratio 1.4 ratio Low 1.6-2.2 Absolute Baso. 0.0 K/ul 0.0-0.3 Absolute Eos. 0.1 K/ul 0.0-0.5 Absolute Lymph. 1.1 K/ul 0.8-4.[address] [place]. 0.4 K/ul 0.1-1.0 Absolute [place]. 3.17 K/ul 2.05-7.63 Albumin 3.8 g/dL 3.5-5.0 Alk. Phos. 51.0 U/L 30.0-126.0 Alt 17.0 U/L 9.0-52.0 Anion Gap 10.0 mmol/L 10.0-20.0 Ast 14.0 U/L 14.0-36.0 BUN 16.0 mg/dL 7.0-18.0 BUN/Creat Ratio 17.8 ratio 12.0-20.0 Calcium 9.6 mg/dL 8.7-10.5 Chloride 106.0 mmol/L 98.0-107.0 Co2 27.0 mmol/L 22.0-30.0 Creatinine-Serum 0.9 mg/dL 0.7-1.2 Globulin 2.8 g/dL 2.7-4.3 Glucose 99.0 mg/dL 75.0-110.0 HCT 43.4 % 37.0-51.0 HGB 13.6 Gm/dl 12.0-16.0 MCH 28.0 pg 26.0-32.0 MCHC 31.3 g/dL 31.0-36.0 MCV 89.7 Fl 80.0-97.0 MPV 7.6 fL 6.0-10.0 PLT 229 K/ul 140-440 Potasium 4.2 mmol/L 3.6-5.0 RBC 4.8 M/ul 4.2-6.3 RDW 12.0 % 11.5-14.5 Sodium 143.0 mmil/L 137.0-145.0 Total Bilirubin 0.6 mg/dL 0.2-1.3 Total Protein 6.6 g/dL 6.3-8.2 WBC 4.8 K/ul 4.1-10.9 eGFR 67.4 mi/minper1.7 112 Lipid Panel 08/07/2012 N2N/CCD Import Chol/HDL Ratio 4.8 ratio Cholesterol 245.0 mg/dL High 50.0-199.0 HDL 51.0 mg/dL 29.0-86.0 LDL, Calculated 166.6 mg/dL High 20.0-129.0 Triglycerides 137.0 mg/dL 30.0-249.0 vLDL 27.4 ng/dL Laboratory test 04/17/2012 N2N/CCD Import Afp Tumor 50.4 ng/mL High 0.0- 8.3 113 finding Marker,Serum Hepatic Function 04/17/2012 N2N/CCD Import Albumin 3.8 g/dL 3.5-5.0 Alkaline Phosphatase 56 U/L 30-126 Alt 30 U/L 9-52 Ast 20 U/L 14-36 Total Bilirubin 0.9 mg/dL 0.2-1.3 Total Protein 6.7 g/dL 6.3-8.2 Laboratory test 08/22/2011 N2N/CCD Import Antinuclear Negative . 114 finding Antibodies, Ifa Ferritin 58.3 ng/mL 3-105 Serum Iron 95 g/dL 25-156 Total Iron Binding Capacity 317 g/dL 245-419 Transferrin %Saturation 30 % 12-57 Vitamin B12 And 08/22/2011 N2N/CCD Import Folic Acid 30.6 ng/mL High 6.0- 15.4 Folate Vitamin B12 853 pg/mL 311-1180 Laboratory test finding 07/20/2011 N2N/CCD Import Alb/Glob 1.1 ratio Albumin 3.7 g/dL 3.5-5.0 Alkaline Phosphatase 34 U/L Low 50-136 Anion Gap 11 mEq/L 8-16 BUN 10 mg/dL 5-23 BUN/Creat 10.0 ratio Bas% 1.1 % 0.0-1.1 Baso # 0.04 K/uL 0.0-0.1 Bilirubin,Total 0.7 mg/dL 0.2-1.2 CBC See Note 115 Calcium 8.9 mg/dL 8.5-10.1 Carbon Dioxide 31 mEq/L High 18-29 Chloride 105 mmol/L 98-107 Creatinine 1.0 mg/dL 0.5-1.4 Dehydroepiandrosterone Sulfate 58.0 g/dL 18.9-205.0 Eo% 1.4 % 0.0-6.6 Eos # 0.05 K/uL 0.0-0.5 Globulin 3.3 g/dL 1.9-4.3 Glom Filtration Rate, Estimate >60 mL/min >60 Glucose 92 mg/dL 76-115 Hematocrit 39.5 % 36.0-46.1 Hemoglobin 13.2 gm/dL 11.6-15.8 If >60 mL/min >60 116 Lymph # 1.29 K/uL 0.8-3.4 Lymph % 35.1 % 17.0-46.1 Mean Cell Volume 88.0 fl 80.9-99.0 Mean Corpuscular HGB 29.4 pg 25.9-32.7 Mean Corpuscular HGB Conc 33.4 g/dL 30.8-34.3 Mean Platelet Volume 10.4 fL 8.9-12.4 [place] # 0.33 K/uL 0.3-0.9 [place] % 9.0 % 4.3-13.2 Neut# 1.96 K/uL 1.0-7.0 Neut% 53.4 % 40.4-72.8 Platelet Count 229 K/uL 155-360 Potassium 4.3 mmol/L 3.5-5.1 Prolactin 17.9 ng/mL 3.24-29.12 Red Blood Count 4.49 M/uL 3.90-5.40 Red Cell Distri Width %CV 12.8 % 11.7-14.4 Red Cell Distri Width SD 40.7 fl 3-47 SGPT/Alt 24 U/L Low 30-65 Sgot/Ast 11 U/L Low 16-40 Sodium 143 mmol/L 136-145 Thyroid Peroxidase Antibodies 7 IU/mL 0-34 117 Thyroid Stim Hormone 1.87 uIU/mL 0.49-4.67 Total Protein 7.0 g/dL 6.3-8.0 Vitamin D,25-Hydroxy 31.1 ng/mL 30.0-100.0 118 White Blood Count 3.6 K/uL 3.1-10.7 LDL Cholesterol Profile 07/20/2011 N2N/CCD Import Cholesterol 186 mg/dL 120-200 HDL Cholesterol 37 mg/dL 29-83 LDL-Cholesterol 126 mg/dL 62-185 Triglycerides 115 mg/dL 16-231 Testosterone,Free/Weakly 07/20/2011 N2N/CCD Import Testosterone,%Free/ Weakly 18.2 High 3.0-18.0 Bound BND % Testosterone,Free+Weakly Bound 1.8 ng/dL 0.0-9.5 119 Testosterone,Serum 10 ng/dL 3-41 Laboratory test 04/21/2011 N2N/CCD Import Ovary BX/Wedge See Note 120 finding Resection-Froze Peritoneal Washing See Note 121 Laboratory test 04/21/2011 N2N/CCD Import Peritoneal See Note 122 finding Washing Laboratory test 11/18/2010 N2N/CCD Import Prolactin 18.3 ng/mL 3.24-29 123 finding .12 Absolute Basophils 0.040 K/ul 0.0-0.3 Absolute Eosinophils 0.075 K/ul 0.0-0.5 Absolute Lymphocytes 1.16 K/ul 0.8-4.8 Absolute Monocytes 0.383 K/ul 0.1-1.0 Absolute Neutrophils 3.10 K/ul 2.05-7.63 Alt 21 U/L 9-52 Anion Gap 14 mmol/L 10-20 Ast 15 U/L 14-36 BUN 19 mg/dL High 7-18 BUN/CR Ratio 22.0 Ratio High 12-20 Basophil 0.8 % 0-2 Calcium 8.9 mg/dL 8.7-10.5 Carbon Dioxide 31 mmol/L High 22-30 Chloride 103 mmol/L 98-107 Creatinine, Serum 0.9 mg/dL 0.7-1.2 Eosinophil 1.6 % 0-4 Glucose 98 mg/dL 65-105 Hematocrit 42.3 % 37.0-51.0 Hemoglobin 13.7 GM/dl 12.0-16.0 Lymphocytes 24.4 % 20-44 MCH 29.3 pg 26.0-32.0 MCHC 32.4 g/dL 31.0-36.0 MCV 90 FL 80-97 Monocytes 8.0 % 2-10.0 Neutrophils 65.1 % 50-70 Platelet Count 212 K/ul 140-440 Potassium 4.7 mmol/L 3.6-5.0 RBC 4.68 M/ul 4.2-6.3 RDW 12.1 % 11.5-14.5 Sodium 144 mmol/L 137-145 WBC 4.8 K/ul 4.1-10.9 Lipid Panel 11/18/2010 N2N/CCD Import Chol/HDL Ratio 4.7 124 Cholesterol 225 mg/dL High 50-199 HDL Cholesterol 47 mg/dL 29-86 LDL 156 mg/dL High 20-129 Triglycerides 110 mg/dL 30-249 VLDL Cholesterol 22 mg/dL Laboratory test 11/18/2010 N2N/CCD Import Absolute 0.040 K/ul 0.0-0.3 finding Basophils Absolute Eosinophils 0.075 K/ul 0.0-0.5 Absolute Lymphocytes 1.16 K/ul 0.8-4.8 Absolute Monocytes 0.383 K/ul 0.1-1.0 Absolute Neutrophils 3.10 K/ul 2.05-7.63 Alt 21 U/L 9-52 Anion Gap 14 mmol/L 10-20 Ast 15 U/L 14-36 BUN 19 mg/dL High 7-18 BUN/CR Ratio 22.0 Ratio High 12-20 Basophil 0.8 % 0-2 Calcium 8.9 mg/dL 8.7-10.5 Carbon Dioxide 31 mmol/L High 22-30 Chloride 103 mmol/L 98-107 Creatinine, Serum 0.9 mg/dL 0.7-1.2 Eosinophil 1.6 % 0-4 Glucose 98 mg/dL 65-105 Hematocrit 42.3 % 37.0-51.0 Hemoglobin 13.7 GM/dl 12.0-16.0 Lymphocytes 24.4 % 20-44 MCH 29.3 pg 26.0-32.0 MCHC 32.4 g/dL 31.0-36.0 MCV 90 FL 80-97 Monocytes 8.0 % 2-10.0 Neutrophils 65.1 % 50-70 Platelet Count 212 K/ul 140-440 Potassium 4.7 mmol/L 3.6-5.0 RBC 4.68 M/ul 4.2-6.3 RDW 12.1 % 11.5-14.5 Sodium 144 mmol/L 137-145 WBC 4.8 K/ul 4.1-10.9 Lipid Panel 11/18/2010 N2N/CCD Import Chol/HDL Ratio 4.7 125 Cholesterol 225 mg/dL High 50-199 HDL Cholesterol 47 mg/dL 29-86 LDL 156 mg/dL High 20-129 Triglycerides 110 mg/dL 30-249 VLDL Cholesterol 22 mg/dL Laboratory test finding 07/08/2010 N2N/CCD Import Alt 19 U/L 9-52 126 Ast 16 U/L 14-36 Lipid Panel 07/08/2010 N2N/CCD Import Chol/HDL Ratio 5.1 127 Cholesterol 227 mg/dL High 50-199 HDL Cholesterol 44 mg/dL -86 LDL 152 mg/dL High 20-129 Triglycerides 156 mg/dL 30-249 VLDL Cholesterol 31 mg/dL Laboratory test finding 03/04/2010 N2N/CCD Import Alt 21 U/L 9-52 Ast 18 U/L 14-36 Lipid Panel 03/04/2010 N2N/CCD Import Chol/HDL Ratio 5.1 128 Cholesterol 242 mg/dL High 50-199 HDL Cholesterol 47 mg/dL 29-86 LDL 157 mg/dL High 20-129 Triglycerides 188 mg/dL 30-249 VLDL Cholesterol 38 mg/dL Laboratory test finding 12/01/2009 N2N/CCD Import Alt 19 U/L 9-52 Anion Gap 11 mmol/L 10-20 Ast 17 U/L 14-36 BUN 16 mg/dL 7-18 BUN/CR Ratio 18.1 Ratio 12-20 Calcium 9.2 mg/dL 8.7-10.5 Carbon Dioxide 31 mmol/L High 22-30 Chloride 105 mmol/L 98-107 Creatinine, Serum 0.9 mg/dL 0.7-1.2 Glucose 91 mg/dL 65-105 Potassium 4.3 mmol/L 3.6-5.0 Sodium 143 mmol/L 137-145 Lipid Panel 12/01/2009 N2N/CCD Import Chol/HDL Ratio 4.8 129 Cholesterol 231 mg/dL High 50-199 HDL Cholesterol 48 mg/dL -86 LDL 153 mg/dL High 20-129 Triglycerides 149 mg/dL 30-249 VLDL Cholesterol 30 mg/dL Laboratory test finding 06/04/2009 N2N/CCD Import Alt 19 U/L 9-52 Anion Gap 10 mmol/L 10-20 Ast 16 U/L 14-36 BUN 15 mg/dL 7-18 BUN/CR Ratio 18.0 Ratio 12-20 Calcium 9.0 mg/dL 8.7-10.5 Carbon Dioxide 30 mmol/L 22-30 Chloride 104 mmol/L 98-107 Creatinine, Serum 0.9 mg/dL 0.7-1.2 Glucose 80 mg/dL 65-105 Potassium 4.3 mmol/L 3.6-5.0 Sodium 140 mmol/L 137-145 Lipid Panel 06/04/2009 N2N/CCD Import Chol/HDL Ratio 4.7 130 Cholesterol 221 mg/dL High 50-199 HDL Cholesterol 47 mg/dL LDL 148 mg/dL High 20-129 Triglycerides 131 mg/dL 30-249 VLDL Cholesterol 26 mg/dL Laboratory test finding 01/06/2009 N2N/CCD Import Alt 16 U/L 9- Ast 18 U/L 14-36 Lipid Panel 01/06/2009 N2N/CCD Import Chol/HDL Ratio 5.3 131 Cholesterol 260 mg/dL High 50-199 HDL Cholesterol 49 mg/dL LDL 179 mg/dL High 20-129 Triglycerides 158 mg/dL 30-249 VLDL Cholesterol 32 mg/dL Laboratory test finding 06/12/2008 N2N/CCD Import Alt 17 U/L 9-52 Anion Gap 12 mmol/L 10-20 Ast 16 U/L 14-36 BUN 13 mg/dL -18 BUN/CR Ratio 13.6 Ratio 12-20 Calcium 9.2 mg/dL 8.7-10.5 Carbon Dioxide 30 mmol/L 22-30 Chloride 105 mmol/L 98-107 Creatinine, Serum 0.9 mg/dL 0.7-1.2 Glucose 90 mg/dL 65-105 Potassium 4.3 mmol/L 3.6-5.0 Sodium 142 mmol/L 137-145 Lipid Panel 06/12/2008 N2N/CCD Import Chol/HDL Ratio 5.1 132 Cholesterol 233 mg/dL High 50-199 HDL Cholesterol 45 mg/dL LDL 165 mg/dL High 20-129 Triglycerides 115 mg/dL 30-249 VLDL Cholesterol 23 mg/dL Lipid Panel 12/06/2007 N2N/CCD Import Chol/HDL Ratio 5.6 133 Cholesterol 238 mg/dL High 50-199 HDL Cholesterol 42 mg/dL LDL 167 mg/dL High 20-129 Triglycerides 145 mg/dL 30-249 VLDL Cholesterol 29 mg/dL Laboratory test finding 12/06/2007 N2N/CCD Import Anion Gap 13 mmol/L 10 -20 BUN 13 mg/dL 7-18 BUN/CR Ratio 13.4 Ratio 12-20 Calcium 9.0 mg/dL 8.7-10.5 Carbon Dioxide 28 mmol/L 22-30 Chloride 106 mmol/L 98-107 Creatinine, Serum 1.0 mg/dL 0.7-1.2 Glucose 88 mg/dL 65-105 Potassium 4.3 mmol/L 3.6-5.0 Sodium 143 mmol/L 137-145 Laboratory test 08/21/2007 N2N/CCD Import Absolute Basophils 0.02 K/ul 0.0-0.3 finding Absolute Eosinophils 0.12 K/ul 0.0-0.5 Absolute Lymphocytes 0.80 K/ul 0.8-4.8 Absolute Monocytes 0.39 K/ul 0.1-1.0 Absolute Neutrophils 3.82 K/ul 2.05-7.63 Anion Gap 14 mmol/L 10-20 BUN 12 mg/dL - BUN/CR Ratio 12.3 Ratio 12-20 Basophil 0.3 % 0-2 Calcium 8.9 mg/dL 8.7-10.5 Carbon Dioxide 29 mmol/L 22-30 Chloride 102 mmol/L 98-107 Creatinine, Serum 1.0 mg/dL 0.7-1.2 Eosinophil 2.4 % 0-4 Glucose 78 mg/dL 65-105 Hematocrit 41.2 % 37.0-51.0 Hemoglobin 13.9 GM/dl 12.0-16.0 Lymphocytes 15.6 % Low 20-44 MCH 29.9 pg 26.0-32.0 MCHC 33.7 g/dL 31.0-36.0 MCV 89 FL 80-97 Monocytes 7.6 % 2-10.0 Neutrophils 74.1 % High 50-70 Platelet Count 224 K/ul 140-440 Potassium 4.8 mmol/L 3.6-5.0 RBC 4.65 M/ul 4.2-6.3 RDW 11.9 % 11.5-14.5 Sodium 140 mmol/L 137-145 WBC 5.2 K/ul 4.1-10.9 Lipid Panel 06/07/2007 N2N/CCD Import Chol/HDL Ratio 5.5 134 Cholesterol 245 mg/dL High 50-199 HDL Cholesterol 44 mg/dL 29-86 LDL 169 mg/dL High 20-129 Triglycerides 162 mg/dL 30-249 VLDL Cholesterol 32 mg/dL Laboratory test finding 06/07/2007 N2N/CCD Import Anion Gap 11 mmol/L 10 -20 BUN 14 mg/dL - BUN/CR Ratio 12.4 Ratio 12-20 Calcium 8.8 mg/dL 8.7-10.5 Carbon Dioxide 30 mmol/L 22-30 Chloride 105 mmol/L 98-107 Creatinine, Serum 1.1 mg/dL 0.7-1.2 Glucose 88 mg/dL 65-105 Potassium 4.4 mmol/L 3.6-5.0 Sodium 141 mmol/L 137-145 Lipid Panel 01/04/2007 N2N/CCD Import Chol/HDL Ratio 5.8 135 Cholesterol 247 mg/dL High 50-199 HDL Cholesterol 42 mg/dL 29-86 LDL 181 mg/dL High 20-129 Triglycerides 120 mg/dL 30-249 VLDL Cholesterol 24 mg/dL Lipid Panel 09/28/2006 N2N/[facility]ep[facility] Import Chol/HDL Ratio 5.3 136 Cholesterol 247 mg/dL High 50-199 HDL Cholesterol 46 mg/dL 29-86 LDL 171 mg/dL High 20-129 Triglycerides 150 mg/dL 30-249 VLDL Cholesterol 30 mg/dL Lipid Panel 03/02/2006 N2N/[facility] Import Chol/HDL Ratio 5.12 137, 138 Cholesterol 253 mg/dL High 50-199 HDL Cholesterol 49 mg/dL 29-86 LDL 177 mg/dL High 20-129 Triglycerides 132 mg/dL 30-249 VLDL Cholesterol 26 mg/dL Hepatic Function 03/02/2006 N2N/[facility] Import Albumin 3.7 g/dL 3.5-5.0 Alkaline Phosphatase 50 U/L 38-126 Alt 23 U/L 9-52 Ast 17 U/L 14-36 Total Bilirubin 0.6 mg/dL 0.2-1.3 Total Protein 6.4 g/dL 6.3-8.2 Laboratory test 03/02/2006 N2N/[facility] Import Absolute Basophils 0.02 K/ul 0.0-0.3 finding Absolute Eosinophils 0.09 K/ul 0.0-0.5 Absolute Lymphocytes 1.23 K/ul 0.8-4.8 Absolute Monocytes 0.34 K/ul 0.1-1.0 Absolute Neutrophils 3.19 K/ul 2.05-7.63 Anion Gap 11 mmol/L 10-20 BUN 12 mg/dL 7-18 BUN/CR Ratio 12.1 Ratio 12-20 Basophil 0.4 % 0-2 Calcium 8.9 mg/dL 8.7-10.5 Carbon Dioxide 29 mmol/L 22-30 Chloride 103 mmol/L 98-107 Creatinine, Serum 1.0 mg/dL 0.7-1.2 Eosinophil 1.8 % 0-4 Glucose 94 mg/dL 65-105 Hematocrit 38.8 % 37.0-51.0 Hemoglobin 13.4 GM/dl 12.0-16.0 Lymphocytes 25.3 % 20-44 MCH 29.4 pg 26.0-32.0 MCHC 34.6 g/dL 31.0-36.0 MCV 85 FL 80-97 Monocytes 7.0 % 2-10.0 Neutrophils 65.5 % 50-70 Platelet Count 252 K/ul 140-440 Potassium 4.0 mmol/L 3.6-5.0 Prolactin 52.4 ng/mL High 1.4-24.2 RBC 4.57 M/ul 4.2-6.3 RDW 12.1 % 11.5-14.5 Sodium 139 mmol/L 137-145 TSH 2.682 uIU/ml 0.50-6.00 WBC 4.9 K/ul 4.1-10.9 1 D35.2 E78.2 E55.9 K21.9 2 Non- ..... 2.2-30.3 ng/mL ......... 8.1-347.6 ng/mL Post-Menopausal .. 0.7-31.5 ng/mL 3 Reference Guidelines*: Desirable: ........... < 200 mg/dL Borderline High: ..... 200-239 mg/dL High: ................ >=240 mg/dL * The National Cholesterol Education Program (NCEP) 4 Reference Guidelines*: Normal: ............. < 150 mg/dL Borderline High: .... 150-199 mg/dL High: ............... 200-499 mg/dL Very High: .......... > 500 mg/dL * Source: National Cholesterol Education Program (NCEP) 5 Reference Guidelines*: Low HDL: ..... < 40 mg/dL Normal: ..... 40-60 mg/dL Desirable: ... > 60 mg/dL *The National Cholesterol Education Program(NCEP) 6 Reference Guidelines*: Optimal:........... <100 mg/dL Near Optimal....... 100-129 mg/dL Borderline High.... 130-159 mg/dL High............... 160-189 mg/dL Very High.......... >=190 mg/dL * Source: National Cholesterol Education Program (NCEP) 7 Note: Persistent reduction for 3 months or more in an eGFR <60 mL/min/1.73 m2 defines CKD. Patients with eGFR values >/=60 mL/min/1.73 m2 may also have CKD if evidence of persistent proteinuria is present. The original MDRD equation for estimated GFR is not valid for patients less than 18 years of age. Additional information may be found at www.kdoqi.org. 8 Values below the stated reference ranges of AST and ALT can be seen in normal populations. Clinical correlation is suggested. 9 Vitamin D deficiency has been defined by the [place] [employer] [place] and an Endocrine Society practice guideline as a level of serum 25-OH vitamin D less than 20 ng/mL (1,2). The Endocrine Society went on to further define vitamin D insufficiency as a level between 21 and 29 ng/mL (2). 1. IOM ([place] [employer]). 2010. Dietary reference intakes for calcium and D. [place]: The National Academies Press. 2. Vic MF, Dahlia NC, Neha-Js CARRASCO, et al. Evaluation, treatment, and prevention of vitamin D deficiency: an Endocrine Society clinical practice guideline. JCEM. 2010; 96(7):1911-30. Performed at: RN - [facility] [address] [id number] [employer] Officer: Deepali Seymour MD, Phone: [phone] 10 e78.0 11 Reference Guidelines*: Desirable: ........... < 200 mg/dL Borderline High: ..... 200-239 mg/dL High: ................ >=240 mg/dL * The National Cholesterol Education Program (NCEP) 12 Reference Guidelines*: Normal: ............. < 150 mg/dL Borderline High: .... 150-199 mg/dL High: ............... 200-499 mg/dL Very High: .......... > 500 mg/dL * Source: National Cholesterol Education Program (NCEP) 13 Reference Guidelines*: Low HDL: ..... < 40 mg/dL Normal: ..... 40-60 mg/dL Desirable: ... > 60 mg/dL *The National Cholesterol Education Program(NCEP) 14 Reference Guidelines*: Optimal:........... <100 mg/dL Near Optimal....... 100-129 mg/dL Borderline High.... 130-159 mg/dL High............... 160-189 mg/dL Very High.......... >=190 mg/dL * Source: National Cholesterol Education Program (NCEP) 15 Values below the stated reference ranges of AST and ALT can be seen in normal populations. Clinical correlation is suggested. 16 E55.9,E78.2, N95.0 17 Vitamin D deficiency has been defined by the [place] [employer] and an Endocrine Society practice guideline as a level of serum 25-OH vitamin D less than 20 ng/mL (1,2). The Endocrine Society went on to further define vitamin D insufficiency as a level between 21 and 29 ng/mL (2). 1. IOM ([place] [employer]). 2010. Dietary reference intakes for calcium and D. [place]: The National Academies Press. 2. Vic MF, Dahlia DURAN, Brooke CARRASCO, et al. Evaluation, treatment, and prevention of vitamin D deficiency: an Endocrine Society clinical practice guideline. JCEM. 2010; 96(7):1911-30. Performed at: RN - [facility] [address] [id number] [employer] Officer: Deepali Seymour MD, Phone: [phone] 18 Note: Persistent reduction for 3 months or more in an eGFR <60 mL/min/1.73 m2 defines CKD. Patients with eGFR values >/=60 mL/min/1.73 m2 may also have CKD if evidence of persistent proteinuria is present. The original MDRD equation for estimated GFR is not valid for patients less than 18 years of age. Additional information may be found at www.kdoqi.org. 19 Values below the stated reference ranges of AST and ALT can be seen in normal populations. Clinical correlation is suggested. 20 Reference Guidelines*: Desirable: ........... < 200 mg/dL Borderline High: ..... 200-239 mg/dL High: ................ >=240 mg/dL * The National Cholesterol Education Program (NCEP) 21 Reference Guidelines*: Normal: ............. < 150 mg/dL Borderline High: .... 150-199 mg/dL High: ............... 200-499 mg/dL Very High: .......... > 500 mg/dL * Source: National Cholesterol Education Program (NCEP) 22 Reference Guidelines*: Low HDL: ..... < 40 mg/dL Normal: ..... 40-60 mg/dL Desirable: ... > 60 mg/dL *The National Cholesterol Education Program(NCEP) 23 Reference Guidelines*: Optimal:........... <100 mg/dL Near Optimal....... 100-129 mg/dL Borderline High.... 130-159 mg/dL High............... 160-189 mg/dL Very High.......... >=190 mg/dL * Source: National Cholesterol Education Program (NCEP) 24 D35.2 Z00.00 E78.2 25 Reference Guidelines*: Desirable: ........... < 200 mg/dL Borderline High: ..... 200-239 mg/dL High: ................ >=240 mg/dL * The National Cholesterol Education Program (NCEP) 26 Reference Guidelines*: Normal: ............. < 150 mg/dL Borderline High: .... 150-199 mg/dL High: ............... 200-499 mg/dL Very High: .......... > 500 mg/dL * Source: National Cholesterol Education Program (NCEP) 27 Reference Guidelines*: Low HDL: ..... < 40 mg/dL Normal: ..... 40-60 mg/dL Desirable: ... > 60 mg/dL *The National Cholesterol Education Program(NCEP) 28 Reference Guidelines*: Optimal:........... <100 mg/dL Near Optimal....... 100-129 mg/dL Borderline High.... 130-159 mg/dL High............... 160-189 mg/dL Very High.......... >=190 mg/dL * Source: National Cholesterol Education Program (NCEP) 29 Note: Persistent reduction for 3 months or more in an eGFR <60 mL/min/1.73 m2 defines CKD. Patients with eGFR values >/=60 mL/min/1.73 m2 may also have CKD if evidence of persistent proteinuria is present. The original MDRD equation for estimated GFR is not valid for patients less than 18 years of age. Additional information may be found at www.kdoqi.org. 30 Values below the stated reference ranges of AST and ALT can be seen in normal populations. Clinical correlation is suggested. 31 Non- ..... 2.2-30.3 ng/mL ......... 8.1-347.6 ng/mL Post-Menopausal .. 0.7-31.5 ng/mL 32 Vitamin D deficiency has been defined by the [place] [employer] and an Endocrine Society practice guideline as a level of serum 25-OH vitamin D less than 20 ng/mL (1,2). The Endocrine Society went on to further define vitamin D insufficiency as a level between 21 and 29 ng/mL (2). 1. IOM ([place] [employer]). 2010. Dietary reference intakes for calcium and D. [place]: The National Academies Press. 2. Vic MF, Dahlia NC, Brooke CARRASCO, et al. Evaluation, treatment, and prevention of vitamin D deficiency: an Endocrine Society clinical practice guideline. JCEM. 2010; 96(7):1911-30. Performed at: RN - [facility] [id number] [employer] Officer: Deepali Seymour MD, Phone: [phone] 33 z11.59 34 INFCE Result Units: s/co ratio Negative: < 0.8 Indeterminate: 0.8 - 0.9 Positive: > 0.9 The CDC recommends that a positive HCV antibody result be followed up with a HCV Nucleic Acid Amplification test ([id number]). Performed at: [facility] [id number] [employer] Officer: Deepali Seymour MD, Phone: [phone] 35 VOMITING, NAUSEA, DIARRHEA 36 Method: Annexon Hemoccult Card 37 POSSIBLE UROGENITAL CONTAMINATION. 38 URINE, CLEAN CATCH 39 NEGATIVE FOR CRYPTOSPORIDIUM SPECIFIC ANTIGEN 40 NEGATIVE FOR GIARDIA SPECIFIC ANTIGEN. The specimen will be held for 5 days. Additional testing may be performed upon request if the antigen tests are negative, and the patient is still symptomatic or has traveled to an endemic region. Method: Alere Quik Chek Rapid Membrane Enzyme Immunoassay 41 NEGATIVE FOR C. DIFFICILE TOXIN A/B. Method: Alere Tox A/B Quik Chek Rapid Immunoassay CORRELATE RESULTS WITH CLINICAL CONDITION. 42 NO ENTERIC PATHOGENS ISOLATED 43 ................................................... 44 INCLUDES TESTING FOR SALMONELLA, SHIGELLA, AEROMONAS, 45 PLESIOMONAS, CAMPYLOBACTER, AND E. COLI 0157:H7 46 ................................................... 47 YERSINIA AND VIBRIO ARE NOT ROUTINELY SCREENED FOR AND 48 SHOULD BE REQUESTED SEPARATELY 49 SHIGA TOXIN 1 NOT DETECTED 50 SHIGA TOXIN 2 NOT DETECTED Method: ImmunoCard STAT/EHEC Rapid Immunochromatographic Assay 51 Updated reference range on new analyzer 52 Updated reference range on new analyzer 53 Concerning GFR Guidelines: Normal function or mild renal disease, if clinically at risk: >/=60 mL/min Moderately decreased: 30-59 Severely decreased: 15-29 Renal failure: <15 Glomerular Filtration Rate (GFR) is estimated based on the MDRD equation, which assumes a steady state for creatinine as recommended by the National Kidney Disease Education Program in conjunction with the National Institutes of Health and the National Kidney Foundation. Clinical conditions in which it may be necessary to measure GFR by using clearance methods include extremes of age and body size, severe malnutrition or obesity, diseases of skeletal muscle, paraplegia or quadriplegia, vegetarian diet, rapidly changing kidney function, and calculation of the dose of potentially toxic drugs that are excreted by the kidneys. 54 Concerning GFR Guidelines for Americans: Normal function or mild renal disease, if clinically at risk: >/=60 mL/min Moderately decreased: 30-59 Severely decreased: 15-29 Renal failure: <15 55 Updated reference range on new analyzer 56 Unless otherwise specified, testing performed by [facility] [address] [place] [id number] 57 Note: Persistent reduction for 3 months or more in an eGFR <60 mL/min/1.73 m2 defines CKD. Patients with eGFR values >/=60 mL/min/1.73 m2 may also have CKD if evidence of persistent proteinuria is present. The original MDRD equation for estimated GFR is not valid for patients less than 18 years of age. Additional information may be found at www.kdoqi.org. 58 Values below the stated reference ranges of AST and ALT can be seen in normal populations. Clinical correlation is suggested. 59 Reference Guidelines*: Desirable: ........... < 200 mg/dL Borderline High: ..... 200-239 mg/dL High: ................ >=240 mg/dL * The National Cholesterol Education Program (NCEP) 60 Reference Guidelines*: Normal: ............. < 150 mg/dL Borderline High: .... 150-199 mg/dL High: ............... 200-499 mg/dL Very High: .......... > 500 mg/dL * Source: National Cholesterol Education Program (NCEP) 61 Reference Guidelines*: Low HDL: ..... < 40 mg/dL Normal: ..... 40-60 mg/dL Desirable: ... > 60 mg/dL *The National Cholesterol Education Program(NCEP) 62 Reference Guidelines*: Optimal:........... <100 mg/dL Near Optimal....... 100-129 mg/dL Borderline High.... 130-159 mg/dL High............... 160-189 mg/dL Very High.......... >=190 mg/dL * Source: National Cholesterol Education Program (NCEP) 63 Values below the stated reference ranges of AST and ALT can be seen in normal populations. Clinical correlation is suggested. 64 Reference Guidelines*: Desirable: ........... < 200 mg/dL Borderline High: ..... 200-239 mg/dL High: ................ >=240 mg/dL * The National Cholesterol Education Program (NCEP) 65 Reference Guidelines*: Normal: ............. < 150 mg/dL Borderline High: .... 150-199 mg/dL High: ............... 200-499 mg/dL Very High: .......... > 500 mg/dL * Source: National Cholesterol Education Program (NCEP) 66 Reference Guidelines*: Low HDL: ..... < 40 mg/dL Normal: ..... 40-60 mg/dL Desirable: ... > 60 mg/dL *The National Cholesterol Education Program(NCEP) 67 Reference Guidelines*: Optimal:........... <100 mg/dL Near Optimal....... 100-129 mg/dL Borderline High.... 130-159 mg/dL High............... 160-189 mg/dL Very High.......... >=190 mg/dL * Source: National Cholesterol Education Program (NCEP) 68 Note: Persistent reduction for 3 months or more in an eGFR <60 mL/min/1.73 m2 defines CKD. Patients with eGFR values >/=60 mL/min/1.73 m2 may also have CKD if evidence of persistent proteinuria is present. The original MDRD equation for estimated GFR is not valid for patients less than 18 years of age. Additional information may be found at www.kdoqi.org. 69 Values below the stated reference ranges of AST and ALT can be seen in normal populations. Clinical correlation is suggested. 70 Reference Guidelines*: Desirable: ........... < 200 mg/dL Borderline High: ..... 200-239 mg/dL High: ................ >=240 mg/dL * The National Cholesterol Education Program (NCEP) 71 Reference Guidelines*: Normal: ............. < 150 mg/dL Borderline High: .... 150-199 mg/dL High: ............... 200-499 mg/dL Very High: .......... > 500 mg/dL * Source: National Cholesterol Education Program (NCEP) 72 Reference Guidelines*: Low HDL: ..... < 40 mg/dL Normal: ..... 40-60 mg/dL Desirable: ... > 60 mg/dL *The National Cholesterol Education Program(NCEP) 73 Reference Guidelines*: Optimal:........... <100 mg/dL Near Optimal....... 100-129 mg/dL Borderline High.... 130-159 mg/dL High............... 160-189 mg/dL Very High.......... >=190 mg/dL * Source: National Cholesterol Education Program (NCEP) 74 Note: Persistent reduction for 3 months or more in an eGFR <60 mL/min/1.73 m2 defines CKD. Patients with eGFR values >/=60 mL/min/1.73 m2 may also have CKD if evidence of persistent proteinuria is present. The original MDRD equation for estimated GFR is not valid for patients less than 18 years of age. Additional information may be found at www.kdoqi.org. 75 Values below the stated reference ranges of AST and ALT can be seen in normal populations. Clinical correlation is suggested. 76 0.0 - 0.045 ng/mL: Normal 0.046 - 0.5 ng/mL: Suggestive 0.6 - 1.5 ng/mL: Consistent 77 07/14/15 LAB.TOW ADDED TO D-DIMER ORDER 78 THERAPEUTIC INR RANGE: 2.0 - 3.0 DVT, Pulmonary embolus, prophylaxis against venous thrombosis or systemic embolization in high risk patients. 2.5 - 3.5 Mechanical heart valves 79 <=0.49 ug/mL - Low likelihood of DIC, DVT or Pulmonary Embolism >0.49 ug/mL - Additional testing should be done to rule out DIC, DVT, or Pulmonary embolism as clinically indicated. ([facility] has established a 97.89% negative predictive value for thrombotic disease when a cutoff value of 0.5 ug/mL is used.) 80 Values below the stated reference ranges of AST and ALT can be seen in normal populations. Clinical correlation is suggested. 81 Reference Guidelines*: Desirable: ........... < 200 mg/dL Borderline High: ..... 200-239 mg/dL High: ................ >=240 mg/dL * The National Cholesterol Education Program (NCEP) 82 Reference Guidelines*: Normal: ............. < 150 mg/dL Borderline High: .... 150-199 mg/dL High: ............... 200-499 mg/dL Very High: .......... > 500 mg/dL * Source: National Cholesterol Education Program (NCEP) 83 Reference Guidelines*: Low HDL: ..... < 40 mg/dL Normal: ..... 40-60 mg/dL Desirable: ... > 60 mg/dL *The National Cholesterol Education Program(NCEP) 84 Reference Guidelines*: Optimal:........... <100 mg/dL Near Optimal....... 100-129 mg/dL Borderline High.... 130-159 mg/dL High............... 160-189 mg/dL Very High.......... >=190 mg/dL * Source: National Cholesterol Education Program (NCEP) 85 Per NCEP ATP III Guidelines: Results lower than 40 mg/dL are suggestive of increased risk for coronary artery disease. Results > or=to 60 mg/dL are considered a negative risk factor. 86 Per NCEP ATP III Guidelines: Normal Population <130 Patients with medical conditions: CHD/DM Optimal: <100 Borderline high: 130-159 High: 160-189 Very high: >189 87 Concerning GFR Guidelines: Normal function or mild renal disease, if clinically at risk: >/=60 mL/min Moderately decreased: 30-59 Severely decreased: 15-29 Renal failure: <15 Glomerular Filtration Rate (GFR) is estimated based on the MDRD equation, which assumes a steady state for creatinine as recommended by the National Kidney Disease Education Program in conjunction with the National Institutes of Health and the National Kidney Foundation. Clinical conditions in which it may be necessary to measure GFR by using clearance methods include extremes of age and body size, severe malnutrition or obesity, diseases of skeletal muscle, paraplegia or quadriplegia, vegetarian diet, rapidly changing kidney function, and calculation of the dose of potentially toxic drugs that are excreted by the kidneys. 88 Concerning GFR Guidelines for Americans: Normal function or mild renal disease, if clinically at risk: >/=60 mL/min Moderately decreased: 30-59 Severely decreased: 15-29 Renal failure: <15 89 264 Results verified by repeat analysis 90 Per NCEP ATP III Guidelines: Results lower than 40 mg/dL are suggestive of increased risk for coronary artery disease. Results > or=to 60 mg/dL are considered a negative risk factor. 91 Per NCEP ATP III Guidelines: Normal Population <130 Patients with medical conditions: CHD/DM Optimal: <100 Borderline high: 130-159 High: 160-189 Very high: >189 92 Per NCEP ATP III Guidelines: Results lower than 40 mg/dL are suggestive of increased risk for coronary artery disease. Results > or=to 60 mg/dL are considered a negative risk factor. 93 Per NCEP ATP III Guidelines: Normal Population <130 Patients with medical conditions: CHD/DM Optimal: <100 Borderline high: 130-159 High: 160-189 Very high: >189 94 FAXED PER REQUEST - @ 104912/19/13,([facility]) 95 FAXED PER REQUEST - @ 104912/19/13,([facility]) 96 FAXED PER REQUEST - @ 104912/19/13,([facility]) 97 Test(s) [id number] Coffee were developed and had performance characteristics determined by [facility]. These tests have not been cleared or approved by the U.S. Food and Drug Administration. The FDA has determined that such clearance or approval is not necessary. These tests are used for clinical purposes. These should not be regarded as investigational or for research. Performed at: [address] [id number] [employer] Officer: Deepali Seymour MD, Phone: [phone] Performed at: [address] [id number] [employer] Officer: Juan Haider MD, Phone: [phone] 98 FAXED PER REQUEST - @ 104912/19/13,([facility]) 99 FAXED PER REQUEST - @ 104912/19/13,([facility]) 100 FAXED PER REQUEST - @ 104912/19/13,([facility]) 101 Test(s) [id number] Coffee; [id number] Linseed were developed and had performance characteristics determined by [facility]. These tests have not been cleared or approved by the U.S. Food and Drug Administration. The FDA has determined that such clearance or approval is not necessary. These tests are used for clinical purposes. These should not be regarded as investigational or for research. Performed at: [address] [id number] [employer] Officer: Juan Haider MD, Phone: [phone] Performed at : [address] [id number] [employer] Officer: Deepali Seymour MD, Phone: [phone] 102 FAXED PER REQUEST - @ 104912/19/13,([facility]) 103 Levels of Specific IgE Class Description of Class --- ----- < 0.10 0 Negative 0.10 - 0.31 0/I Equivocal/Low 0.32 - 0.55 I Low 0.56 - 1.40 II Moderate 1.41 - 3.90 III High 3.91 - 19.00 IV Very High 19.01 - 100.00 V Very High >100.00 Very High 104 FAXED PER REQUEST - @ 1050 12/19/13,([facility]) 105 FAXED PER REQUEST - @ 1050 12/19/13,([facility]) 106 FAXED PER REQUEST - @ 1050 12/19/13,([facility]) 107 FAXED PER REQUEST - @ 1050 12/19/13,([facility]) 108 ERR= 109 For -Cuban patients multiply result by 1.180 110 For -Cuban patients multiply result by 1.180 111 For -Cuban patients multiply result by 1.180 112 For -Cuban patients multiply result by 1.180 113 Normal values apply only to males and to non females. These results are not interpretable for females. Jeana ECLIA methodology. Values obtained with different assay methods or kits cannot be used interchangeably. Results cannot be interpreted as absolute evidence of the presence or absence of malignant disease. Performed at: [address] [id number] [employer] Officer: Deepali Seymour MD, Phone: [phone] 114 Negative <1:80 Borderline 1:80 Positive >1:80 Performed at: [facility] [id number] [employer] Officer: Russel Viera MD, Phone: [phone] 115 07/20/11 YOLANDA.BMT CBS WANTED 116 Note: Persistent reduction for 3 months or more in an eGFR <60 mL/min/ 1.73 m2 defines CKD. Patients with eGFR values >/=60 mL/min/1.73 m2 may also have CKD if evidence of persistent proteinuria is present. The original MDRD equation for estimated GFR is not valid for patients less than 18 years of age. Additional information may be found at www.kdoqi.org. 117 Performed at: [facility] [id number] [employer] Officer: Russel Viera MD, Phone: [phone] 118 Vitamin D deficiency has been defined by the [place] [employer] and an Endocrine Society practice guideline as a level of serum 25-OH vitamin D less than 20 ng/mL (1,2). The Endocrine Society went on to further define vitamin D insufficiency as a level between 21 and 29 ng/mL (2). 1. IOM ([place] [employer]). 2010. Dietary reference intakes for calcium and D. [place]: The National Academies Press. 2. Vic MF, Dahlia NC, Brooke CARRASCO, et al. Evaluation, treatment, and prevention of vitamin D deficiency: an Endocrine Society clinical practice guideline. JCEM. 2010; 96(7):1911-30. Effective July 18, 2011, Vitamin D, 25 Hydroxy specimen requirements will change to serum only. Performed at: [facility] [id number] [employer] Officer: Russel Viera MD, Phone: [phone] 119 Performed at: [address] [id number] [employer] Officer: Russel Viera MD, Phone: [phone] Performed at: [facility] [id number] [employer] Vehicle Officer: Juan Haider MD, Phone: [phone] 120 OPERATION/PROCEDURE Laparoscopic right salpingo-oophorectomy. DIAGNOSIS: "RIGHT OVARY AND TUBE": RIGHT OVARY: BENIGN MUCINOUS CYSTADENOMA. RIGHT FALLOPIAN TUBE: CYST OF MORGAGNI, PARATUBAL CYSTS. 'OSIRIS': FAT NECROSIS, CALCIFIED. Yvan D : 04/22/2011 10:25:54 AM FROZEN SECTION DIAGNOSIS FROZEN SECTION DX: BY DR. FRANKLIN ARROYO MUCINOUS CYSTADENOMA. GROSS Received fresh labeled, "RIGHT OVARY AND TUBE AND OSIRIS ON BOWEL" is a 3.1 x 1.8 x 1.3 cm. ovary with a wrinkled surface. The serosal surface of the ovary is grossly unremarkable. The fallopian tube measures 3.5 cm. in length and is up to 0.3 cm. in diameter. In addition to the ovary there is a 0.8 x 0.7 x 0.5 cm. swartz, rubbery nodular tissue in the container. The entire specimen weighs 7 grams in toto. On cut surfaces there is a simple cyst measuring 1.3 cm. in diameter at one pole of the ovary. It contains clear fluid. The inner lining is smooth without pathologic growth nor necrosis. The entire specimen is submitted in toto in five blocks after frozen section. JERAMY/tyron MICROSCOPIC Sections reveal mucinous cells lining the ovarian cyst. The ovarian stroma is otherwise unremarkable. Sections from the fallopian tube reveal cysts lined by flat to cuboidal cells. The sections from the 'osiris' demonstrate the presence of a histiocytic reaction surrounding a circumscribed fibrotic area where ghost-like outlines of adipocytes remain. There is focal early calcification. CLINICAL HISTORY Mother with ovarian cancer, BRCA negative, right ovarian complex 1.5 cm. vcyst with nodular mass. PRE OPERATIVE DIAGNOSIS Family history of ovarian malignancy, right ovarian cyst, fibroid uterus. REVIEW CODE CODE: I ---- FRANKLIN Phillips MD 04/22/11 1326 ---- 121 NON-TEST DEVELOPMENT ENGINEER PREPARATION TECHNIQUES CYTOLOGY NON-TEST DEVELOPMENT ENGINEER SPECIMEN PREPARATION: CYTOLOGY PREPTECH SPECIMEN PREPARATION: 2 CENTRIFUGE TUBES 2 THINPREP SLIDE PREPARATIONS 2 SLIDE PREPARATIONS A TOTAL OF 2 SLIDE PREPARATIONS WERE MADE ON THIS SPECIMEN. CYTOLOGY SCREENER - NG @ 06/25 Screened by: MICHAEL Sanderson(ASCP) FINAL INTERPRETATION "WASHINGS, PERITONEAL": CLUSTERS OF POORLY PRESERVED ATYPICAL APPEARING EPITHELIOD CELLS APPRECIATED (REFERENCE CASE: [id number]). GROSS Received in the Cytology Laboratory is -15ml of clear, colorless fluid in an appropriately labeled syringe. ---- Signed FRANKLIN ARROYO MD 04/22/11 114 ---- 122 NON-TEST DEVELOPMENT ENGINEER PREPARATION TECHNIQUES CYTOLOGY NON-TEST DEVELOPMENT ENGINEER SPECIMEN PREPARATION: CYTOLOGY PREPTECH SPECIMEN PREPARATION: 2 CENTRIFUGE TUBES 2 THINPREP SLIDE PREPARATIONS 2 SLIDE PREPARATIONS A TOTAL OF 2 SLIDE PREPARATIONS WERE MADE ON THIS SPECIMEN. CYTOLOGY SCREENER - NG @ 06/25 Screened by: MICHAEL Sanderson([facility]) FINAL INTERPRETATION "WASHINGS, PERITONEAL": CLUSTERS OF POORLY PRESERVED ATYPICAL APPEARING EPITHELIOD CELLS APPRECIATED (REFERENCE CASE: [id number]). GROSS Received in the Cytology Laboratory is -15ml of clear, colorless fluid in an appropriately labeled syringe. ---- FRANKLIN Phillips MD 04/22/11 114 ---- 123 QUERY: @[facility] Pat ID: QUERY: @[facility] Req #: 124 Normal Range: Male: <4.98 Female: <4.45 125 Normal Range: Male: <4.98 Female: <4.45 126 FASTING 127 Normal Range: Male: <4.98 Female: <4.45 128 Normal Range: Male: <4.98 Female: <4.45 129 Normal Range: Male: <4.98 Female: <4.45 130 Normal Range: Male: <4.98 Female: <4.45 131 Normal Range: Male: <4.98 Female: <4.45 132 Normal Range: Male: <4.98 Female: <4.45 133 Normal Range: Male: <4.98 Female: <4.45 134 Normal Range: Male: <4.98 Female: <4.45 135 Normal Range: Male: <4.98 Female: <4.45 136 Normal Range: Male: <4.98 Female: <4.45 137 FASTING labs at [facility] 138 Normal Range: Male: <4.98 Female: <4.45 Procedures Date Code Description Status 01/11/2018 24240 Electrocardiogram Complete Completed 01/10/2018 07398 Electrocardiogram Complete Completed 05/31/2017 19607 Measure Blood Oxygen Level Single Determination Completed 02/22/2017 29494642 Mammogram Completed 09/20/2016 43835 Electrocardiogram Complete Completed 08/31/2016 92389 X-Ray Shoulder Complete Completed 08/31/2016 72976122 Colonoscopy Completed 03/11/2016 63671 X-Ray Knee Complete W/Obliques & Tunnel And/Or Standing Completed Views 11/10/2015 15481 Radiologic Exam Hip Unilateral With Pelvis 2-3 Views Completed 11/10/2015 94409 Radiologic Exam Hip Unilateral With Pelvis 2-3 Views Completed 09/19/2013 89639 Mammography Unilateral Completed 02/12/2013 80440107 Colonoscopy Completed 01/22/2013 02469 Electrocardiogram Complete Completed 12/25/2012 56107 Mammography Unilateral Completed 04/08/2011 09680 Electrocardiogram Complete Completed 03/11/2011 00789 Measure Blood Oxygen Level Single Determination Completed 06/04/2009 84177 Electrocardiogram Complete Completed 05/29/2008 38475 Bone Density Study, Single Photon Absorptiometry Completed Encounters Type Date Location Provider Dx Diagnosis Office Visit 01/10/2018 NERIS Suggs, K21.9 Gastro-esophageal 2:45p Leonela, [employer] reflux disease without esophagitis R07.89 Other chest pain Z68.34 Body mass index (BMI) 34.0-34.9, adult Office Visit 12/29/2017 3:30p [facility] Suggsia, E78.2 Mixed hyperlipidemia [employer] K21.9 Gastro-esophageal reflux disease without esophagitis J45.20 Mild intermittent asthma, uncomplicated J30.9 Allergic rhinitis, unspecified E55.9 Vitamin D deficiency, unspecified D35.2 Benign neoplasm of pituitary gland Z68.34 Body mass index (BMI) 34.0-34.9, adult Office Visit 06/30/2017 3:30p [facility] Leonela Suggs, Z00.00 Encntr for general [employer] adult medical exam w/o abnormal findings E78.2 Mixed hyperlipidemia J45.20 Mild intermittent asthma, uncomplicated K21.9 Gastro-esophageal reflux disease without esophagitis J30.9 Allergic rhinitis, unspecified M25.562 Pain in LEFT knee M25.511 Pain in RIGHT shoulder D35.2 Benign neoplasm of pituitary gland E55.9 Vitamin D deficiency, unspecified Z68.33 Body mass index (BMI) 33.0-33.9, adult Office Visit 05/31/2017 11:30a [facility] Roxanne Castillo PA J01.00 Acute maxillary sinusitis, unspecified Office Visit 01/13/2017 9:00a [facility] Ifeanyi, E78.2 Mixed hyperlipidemia Leonela [employer] J45.20 Mild intermittent asthma, uncomplicated K21.9 Gastro-esophageal reflux disease without esophagitis J30.9 Allergic rhinitis, unspecified M25.562 Pain in LEFT knee D35.2 Benign neoplasm of pituitary gland M25.511 Pain in RIGHT shoulder Z11.59 Encounter for screening for other viral diseases Z68.32 Body mass index (BMI) 32.0-32.9, adult Office Visit 09/20/2016 3:30p [facility] Ifeanyi, Z01.818 Encounter for other Leonela, [employer] preprocedural examination M25.511 Pain in RIGHT shoulder E78.2 Mixed hyperlipidemia J45.20 Mild intermittent asthma, uncomplicated K21.9 Gastro-esophageal reflux disease without esophagitis J30.9 Allergic rhinitis, unspecified M25.562 Pain in LEFT knee D35.2 Benign neoplasm of pituitary gland Z68.31 Body mass index (BMI) 31.0-31.9, adult Office Visit 08/31/2016 3:00p [facility] Leonela Suggs M25.511 Pain in RIGHT [employer] shoulder Office Visit 06/27/2016 8:30a [facility] Leonela Suggs, Z00.00 Encntr for general [employer] adult medical exam w/o abnormal findings Z68.31 Body mass index (BMI) 31.0-31.9, adult E78.2 Mixed hyperlipidemia J45.20 Mild intermittent asthma, uncomplicated K21.9 Gastro-esophageal reflux disease without esophagitis J30.9 Allergic rhinitis, unspecified M25.562 Pain in LEFT knee D35.2 Benign neoplasm of pituitary gland Z12.11 Encounter for screening for malignant neoplasm of colon Office Visit 04/01/2016 9:00a [facility] Dariana Guzman PA M54.31 Sciatica, RIGHT side Office Visit 03/10/2016 8:30a [facility] Dariana Guzman PA E78.2 Mixed hyperlipidemia M25.562 Pain in LEFT knee R03.0 Elevated blood-pressure reading, w/o diagnosis of htn Office Visit 11/10/2015 10:00a 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 Dariana Guzman PA E78.2 Mixed hyperlipidemia J45.20 Mild intermittent asthma, uncomplicated Office Visit 01/01/2015 10:15a 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 Dariana Guzman, 575.8 Gallbladder Disorders PA Other Spec Office Visit 09/16/2014 8:45a [facility] Dariana Guzman, 272.2 Hyperlipidemia Mixed PA 477.9 Rhinitis Allergic Cause Unspec Office Visit 08/26/2014 1:45p Dariana Keller PA 847.0 Sprains & Strains Neck 726.10 Bursae & Tendon Disorders Shoulder Region Unspec 354.0 Carpal Tunnel Syndrome Office Visit 06/19/2014 10:00a Dariana Keller PA 272.2 Hyperlipidemia Mixed 380.4 Impacted Cerumen Office Visit 06/12/2014 8:30a [facility] Dariana Guzman PA 465.9 URI Upper Respiratory Infections Acute Unspec Sites 787.02 Nausea Alone Plan of Treatment Future Appointment(s):01/07/2019 1:15 pm - Leonela Suggs NP at [facility]07/02 - Leonela Suggs NPE78.2 Mixed hyperlipidemiaNew Medication: Rosuvastatin Calcium 10 mg - take 1 tablet 2x/week after main mealNew Labs: Lipid Treatment, Scheduled: 12/31/18Basic ([facility]), Scheduled: 12/31/18Comments: Increase Rosuvastatin to 5mg twice weeklyIncrease weight bearing exercise.Follow up:6 months for routine f/u, fasting labs 1 week prior to OVJ45.20 Mild intermittent asthma, uncomplicatedComments:Continue current medication regime. Will need Pneumovax but declines for nowJ30.9 Allergic rhinitis, unspecifiedComments:Continue current medication regime and f/u with Dr. Wesley as scheduled.E55.9 Vitamin D deficiency, unspecifiedComments: Increase supplement to 5000 units hososG05.9 Gastro-esophageal reflux disease without esophagitisComments:Continue limited use of Prevacid and avoidance of aggravation foods.D35.2 Benign neoplasm of pituitary glandComments:Will continue to follow Prolactin level ztsssdmxK45.562 Pain in LEFT kneeComments: Continue to monitor and attempt to avoid aggravating activities Tylenol as needed for painZ68.35 Body mass index (BMI) 35.0-35.9, adultComments:Recommend continued routine exercise and healthy well balanced diet with portion control
[2018-07-08 12:37] VITALS: BP 160/79
--- NOTE | 2018-07-08 12:44 | UC ---
FLU HPI - HPI Summary HPI Summary: 63 year old female presents with onset of fever, chills, body aches, malaise, nasal congestion, clear nasal discharge, and a non-productive cough. History of asthma. Mild SOB and occasional wheezing. States has increased her ciclesonide to 2 puffs BID and using her nebulizer routinely which has improved the SOB and wheezing. Denies ear pain, sore throat, chest pain, abdominal pain, vomiting, or diarrhea. - History of Current Complaint Chief Complaint: UCRespiratory Stated Complaint: FEVER, ACHES, SINUSES Time Seen by Provider: 07/08/18 12:38 Hx Obtained From: Patient Hx Last Menstrual Period: n/a Pain Intensity: 8 - Allergy/Home Medications Allergies/Adverse Reactions: Allergies Allergy/AdvReac Type Severity Reaction Status Date / Time clarithromycin [From Biaxin] Allergy GI Upset Verified 07/08/18 12:28 erythromycin base Allergy GI Upset Verified 07/08/18 12:28 Sulfa (Sulfonamide Allergy GI Upset Verified 07/08/18 12:28 Antibiotics) Home Medications: Home Medications Azelastine/Fluticasone HERMES(NF [Dymista(NF)] 1 spray BEDTIME 07/08/18 [History Confirmed 07/08/18] Ciclesonide 80 MCG MDI (NF) [Alvesco 80 MDI (NF)] 1 puff BID 07/08/18 [History Confirmed 07/08/18] Desloratadine/Pseudoephedrine [Clarinex-D 12 Hour Tablet] 1 tab QAM 07/08/18 [ History Confirmed 07/08/18] Lansoprazole SOLUTAB* [Prevacid Solutab*] 1 cap DAILY PRN 07/08/18 [History Confirmed 07/08/18] Rosuvastatin Calcium [Crestor] 1 tab WEEKLY 07/08/18 [History Confirmed 07/08/18 ] PMH/Surg Hx/FS Hx/Imm Hx Previously Healthy: Yes Endocrine History: Dyslipidemia Respiratory History: Asthma GI/ History: Gastroesophageal Reflux - Surgical History Surgical History: Yes Surgery Procedure, Year, and Place: Tubal ligation, removal of ovary 2010, breast surgery 1973. RIGHT ROTATOR CUFF. HYSTERECTOMY - Family History Known Family History: Positive: Non-Contributory - Social History Occupation: Employed Full-time Lives: With Family Alcohol Use: None Substance Use Type: None Smoking Status (MU): Never Smoked Tobacco Review of Systems All Other Systems Reviewed And Are Negative: Yes Constitutional: Positive: Fever, Chills, Fatigue Skin: Negative: Rash Eyes: Negative: Drainage, Eye Redness ENT: Positive: Nasal Discharge, Sinus Congestion, Sinus Pain/Tenderness. Negative: Sore Throat, Ear Ache Respiratory: Positive: Shortness Of Breath, Cough, Other - wheezing Cardiovascular: Negative: Chest Pain Gastrointestinal: Negative: Abdominal Pain, Vomiting, Diarrhea Genitourinary: Positive: Negative Musculoskeletal: Positive: Myalgia Neurological: Positive: Negative Physical Exam - Summary Physical Exam Summary: GENERAL APPEARANCE: Well developed, well nourished, alert and cooperative, and appears to be in no acute distress. EYES: Conjunctiva clear. No drainage. Vision is grossly intact. EARS: External auditory canals and tympanic membranes clear, hearing grossly intact. NOSE: Moderate-severe nasal congestion with clear nasal discharge. THROAT: Mild pharyngeal erythema. No tonsilar inflammation, swelling, exudate, or lesions. Uvula midline. Oral cavity normal. Teeth and gingiva in good general condition. NECK: Neck supple, non-tender without lymphadenopathy. CARDIAC: Normal S1 and S2. No S3, S4 or murmurs. Rhythm is regular. There is no peripheral edema, cyanosis or pallor. Extremities are warm and well perfused. Capillary refill is less than 2 seconds. Peripheral pulses intact. LUNGS: Clear to auscultation without rales, rhonchi, wheezing or diminished breath sounds. Dry, non-productive cough. ABDOMEN: Positive bowel sounds. Soft, nondistended, nontender. No guarding or rebound. No masses or hepatosplenomegally. MUSKULOSKELETAL: ROM intact to all extremities. No joint erythema or tenderness. Normal muscular development. Normal gait. SKIN: Skin normal color, texture and turgor with no lesions or eruptions. Triage Information Reviewed: Yes Vital Signs: Initial Vital Signs Temp 100 F 07/08/18 12:31 Pulse 94 07/08/18 12:31 Resp 16 07/08/18 12:31 BP 160/79 07/08/18 12:31 Pulse Ox 99 07/08/18 12:31 Vital Signs Reviewed: Yes Diagnostics - Laboratory Diagnostic Studies Completed/Ordered: Rapid flu positive for influenza A Flu Course/Dx - Course Course Of Treatment: 63 year old female presents with onset of fever, chills, body aches, malaise, nasal congestion, clear nasal discharge, and a non- productive cough. History of asthma. Mild SOB and occasional wheezing. States has increased her ciclesonide to 2 puffs BID and using her nebulizer routinely which has improved the SOB and wheezing. Denies ear pain, sore throat, chest pain, abdominal pain, vomiting, or diarrhea. Mildly elevated temperature of 100 F. Hypertensive but otherwise stable VS. Exam reveals an adult female in no acute distress with moderate-severe nasal congestion, clear nasal drainage, mild pharyngeal erythema without tonsilar swelling or exudate, no cervical lymphadenopathy, clear bilateral breath sounds, dry non-productive cough, and otherwise unremarkable exam. Discussed with patient the limited benefit of starting Tamiflu considering the duration of her symptoms and that she is managing her asthma symptoms well therefore she is electing to defer at this time. Recommending that she continue using her inhalers/nebulizer at current regimen as well as symptomatic treatment for the flu. She is to follow up with her PCP in 7 days if symptoms persist. Anticipatory guidance and warning symptoms discussed with patient. Verbalizes understanding and agrees with POC. - Differential Dx/Diagnosis Differential Diagnosis/HQI/PQRI: Bronchitis, Influenza, Pneumonia, Upper Respiratory Infection Provider Diagnosis: Influenza A Discharge - Sign-Out/Discharge Documenting (check all that apply): Patient Departure All imaging exams completed and their final reports reviewed: No Studies - Discharge Plan Condition: Stable Disposition: HOME Patient Education Materials: Influenza (ED) Referrals: Leonela Suggs [Primary Care Provider] - 7 Days (If no improvement in symptoms.) Additional Instructions: Your flu test in the clinic today was positive for influenza A. Continue using your inhalers as directed. Get plenty of rest. Drink plenty of fluids to avoid dehydration especially if you are running any fever. Take over the counter acetaminophen (Tylenol) or ibuprofen (Advil, Motrin) according to directions as needed for pain or fever. Use salt water gargles several times a day if you have a sore throat. You may also use Chloraseptic spray or Cepacol lonzenges according to directions which contain a numbing medication and can provide some temporary relief from your sore throat. Follow up with your primary care provider in 7 days if symptoms persist. Seek immediate medical attention in the emergency room if you have fever greater than 100.5 F despite taking acetaminophen or ibuprofen, have chest pain , difficulty breathing, are unable to swallow, or have any worsening of symptoms. - Billing Disposition and Condition Condition: STABLE Disposition: Home - Attestation Statements Provider Attestation: Per institutional requirements, I have reviewed the chart, however, I was not consulted specifically or made aware of this patient by the midlevel provider. I did not personally evaluate, interact with , or disposition this patient.
[2018-07-08 12:46] LABS: Influenza A Molecular POSITIVE (Negative)
== END 2018-07-08 12:59 | disposition home or self-care (01) ==
LOC: UCCORT 11:16
DX: J10.1 Influenza due to other identified influenza virus with other respiratory manifestations (principal); E78.5 Hyperlipidemia, unspecified; J45.909 Unspecified asthma, uncomplicated; K21.9 Gastro-esophageal reflux disease without esophagitis; Z79.899 Other long term (current) drug therapy; Z88.1 Allergy status to other antibiotic agents; Z88.2 Allergy status to sulfonamides
CPT/HCPCS: 99211; G0463